=== PATIENT | female | born 1960 | race Caucasian/White ===

== ENCOUNTER 2017-11-08 14:50 | Emergency (ER) | payer OTHER, SELFPAY ==
[2017-11-08 16:08] LABS: Barbiturates NEGATIVE (NEGATIVE); Benzodiazepines NEGATIVE (NEGATIVE); Cocaine NEGATIVE (NEGATIVE); METHAMPHETAM NEGATIVE (NEGATIVE); Methadone NEGATIVE (NEGATIVE); Opiates NEGATIVE (NEGATIVE); Phencyclidine NEGATIVE (NEGATIVE); THC Cannibis NEGATIVE (NEGATIVE)
--- NOTE | 2017-11-08 16:38 | EDPHYS ---
Physician Documentation [facility] Name: Bailee Esparza Age: 56 yrs Sex: Female : 1960 Arrival Date: 11/08/2017 Time: 14:51 Bed 28 Private MD: Out, [facility] ED Physician Albin Corral HPI: 11/08 15:34 This 56 yrs old Female presents to ER via Ambulatory with complaints of Leg cp Numbness. 15:35 The patient presents with pain that is acute, with no known mechanism of injury, and cp tenderness. The symptoms are located in the low back. The pain radiates to the right leg. Onset: The symptoms/episode began/occurred 1 week(s) ago. 15:35 Associated signs and symptoms: Pertinent positives: numbness, tingling, pain radiating cp to right anterior and lateral upper leg, Pertinent negatives: abdominal pain, constipation, dysuria, fever, incontinence, urinary retention, weakness. Historical: - Allergies: 15:09 Sulfa (Sulfonamide Antibiotics); hj 15:09 PENICILLINS; hj - Home Meds: 15:09 citalopram oral [Active]; busphar [Active]; Trazodone Oral [Active]; Geodon oral oral hj [Active]; - PMHx: 15:09 Depression; Anxiety; hj - PSHx: 15:09 ; hj - Immunization history:: Adult Immunizations up to date. - Social history:: Smoking status: Patient uses tobacco products, smokes one pack cigarettes per day. Patient/guardian denies using alcohol. - Ebola Screening: : Patient negative for fever greater than or equal to 101.5 degrees Fahrenheit, and additional compatible Ebola Virus Disease symptoms Patient denies exposure to infectious person Patient denies travel to an Ebola-affected area in the 21 days before illness onset. ROS: 15:40 Constitutional: Negative for body aches, chills, fever, poor PO intake. cp 15:40 Eyes: Negative for injury, pain, redness, and discharge. cp 15:40 ENT: Negative for drainage from ear(s), ear pain, sore throat, difficulty swallowing, difficulty handling secretions. 15:40 Cardiovascular: Negative for chest pain, edema, palpitations. 15:40 Respiratory: Negative for cough, shortness of breath, wheezing. 15:40 Abdomen/GI: Negative for abdominal pain, nausea, vomiting, and diarrhea, constipation, bowel incontinence. 15:40 Back: Positive for pain at rest, pain with movement, of the lumbar area and right low back. 15:40 : Negative for urinary symptoms, difficulty urinating, bladder incontinence. 15:40 MS/extremity: Positive for pain, of the right leg. 15:40 Neuro: Positive for numbness, of the anterior aspect right upper leg, Negative for altered mental status, headache, weakness. 15:40 All other systems are negative. Exam: 15:43 Constitutional: The patient appears in no acute distress, alert, awake, non-toxic, well cp developed, well nourished. 15:43 Head/Face: Normocephalic, atraumatic. cp 15:45 Eyes: Periorbital structures: appear normal, Conjunctiva: normal, Lids and lashes: cp appear normal, bilaterally. 15:45 ENT: External ear(s): are unremarkable, Nose: is normal, Mouth: is normal, Posterior cp pharynx: is normal, airway is patent. 15:45 Neck: ROM/movement: is normal, is supple, without pain, no range of motions limitations, no nuchal rigidity. 15:45 Chest/axilla: Inspection: normal. 15:45 Cardiovascular: Rate: normal, Rhythm: regular. 15:45 Respiratory: the patient does not display signs of respiratory distress, Respirations: normal, no use of accessory muscles, no retractions, no splinting, no tachypnea, Breath sounds: are clear throughout, no decreased breath sounds, no stridor, no wheezing. 15:45 Abdomen/GI: Inspection: abdomen appears normal, Palpation: abdomen is soft and non-tender, in all quadrants, rebound tenderness, is not appreciated, voluntary guarding, is not appreciated, involuntary guarding, is not appreciated. 15:45 Back: pain, that is mild, of the lumbar area and right low back. 15:45 Musculoskeletal/extremity: ROM: full active range of motion, in the right leg and left leg, Perfusion: the extremity is normally perfused throughout, the anterior and lateral aspect right upper leg decreased sensation, Weight bearing: able to fully bear weight, without difficulty. 15:45 Skin: cellulitis, is not appreciated, no rash present. 15:45 Neuro: Gait: is steady, Deep tendon reflexes are 2+ (normal) in the right patellar, right Achilles, left patellar and left Achilles. Vital Signs: 15:10 BP 118 / 67; Pulse 74; Resp 18; Temp 98.4(O); Pulse Ox 97% on R/A; Weight 73.03 kg; hj Height 5 ft. 4 in. (162.56 cm); Pain 0/10; 15:59 BP 114 / 77; Pulse 75; Resp 18; Pulse Ox 100% on R/A; Pain 0/10; mg2 16:52 BP 120 / 70; Pulse 88; Resp 18; Pulse Ox 100% on R/A; Pain 0/10; mg2 15:10 Body Mass Index 27.64 (73.03 kg, 162.56 cm) hj MDM: 15:19 Patient medically screened. cp 16:00 Differential diagnosis: strain, sciatica, Herniated disc UTI, cauda equina, spinal cp stenosis. 16:35 Data reviewed: vital signs, nurses notes, lab test result(s), radiologic studies, plain cp films. 16:35 Test interpretation: by ED physician or midlevel provider: plain radiologic studies. cp Counseling: I had a detailed discussion with the patient and/or guardian regarding: the historical points, exam findings, and any diagnostic results supporting the discharge/admit diagnosis, lab results, radiology results, the need for outpatient follow up, a family practitioner, to return to the emergency department if symptoms worsen or persist or if there are any questions or concerns that arise at home. 11/08 15:41 Order name: Urine Drug Screen; Complete Time: 16:16 ag 11/08 15:41 Order name: Urine Dipstick--Ancillary (enter results) 11/08 15:34 Order name: XRAY Lumbar Spine (3 Views) cp 11/08 15:41 Order name: Urine --Ancillary (enter results) 11/08 15:19 Order name: Urine Dipstick-Ancillary (obtain specimen); Complete Time: 15:31 cp 11/08 15:19 Order name: Urine Test (obtain specimen); Complete Time: 15:31 cp Administered Medications: 16:17 Not Given (Physician Discretion): traMADol 50 mg PO once cp 16:17 Not Given (Physician Discretion): KeFLEX 500 mg PO once cp Disposition: 17:42 Co-signature as Attending Physician, Albin Corral MD Available for consultation at [facility] all times. . Disposition: 11/08/17 16:37 Discharged to Home. Impression: Radiculopathy, lumbar region, Low back pain. - Condition is Stable. - Discharge Instructions: Back Pain, Adult, Lumbosacral Radiculopathy, Back Exercises, [id number]. - Prescriptions for Cyclobenzaprine 10 mg Oral Tablet - take 1 tablet by ORAL route every 8 hours As needed no driving while taking medication; 20 tablet. Medrol (Melvin) 4 mg Oral Tablets, Dose Pack - take 1 tablet by ORAL route as directed - follow package instructions; 1 packet. Ultracet 37.5- 325 mg Oral Tablet - take 1 tablet by ORAL route every 6 hours - for up to 5 days; do not exceed 8 tablets per day.; 15 tablet. - Medication Reconciliation Form, Thank You Letter, Antibiotic Education, Prescription Opioid Use, Work release form form. - Follow up: Private Physician; When: 2 - 3 days; Reason: Recheck today's complaints. - Problem is new. - Symptoms are unchanged. Signatures: Dispatcher [employer] EDMS Bret Rodriguez RN RN hj Hiram Graham PA PA cp Albin Corral MD MD ps1 Martínez Knight RN RN mg2 Corrections: (The following items were deleted from the chart) 16:54 16:37 11/08/2017 16:37 Discharged to Home. Impression: Radiculopathy, lumbar region; mg2 Low back pain. Condition is Stable. Prescriptions for Cyclobenzaprine 10 mg Oral Tablet - take 1 tablet by ORAL route every 8 hours As needed no driving while taking medication; 20 tablet, Medrol (Melvin) 4 mg Oral Tablets, Dose Pack - take 1 tablet by ORAL route as directed - follow package instructions; 1 packet. and Forms are Medication Reconciliation Form, Thank You Letter, Antibiotic Education, Prescription Opioid Use. Follow up: Private Physician; When: 2 - 3 days; Reason: Recheck today's complaints. Problem is new. Symptoms are unchanged. cp
--- NOTE | 2017-11-08 16:38 | ER ---
Nurse's Notes [facility] Name: Bailee Esparza Age: 56 yrs Sex: Female : 1960 Arrival Date: 11/08/2017 Time: 14:51 Bed 28 Private MD: Out, [facility] Diagnosis: Radiculopathy, lumbar region;Low back pain Presentation: 11/08 15:06 Presenting complaint: Patient states: my R leg is going numb and it started yesterday, hj reports hx of lower back pain;. Transition of care: patient was not received from another setting of care. Onset of symptoms was November 08, 2017. Risk Assessment: Do you want to hurt yourself or someone else? Patient reports no desire to harm self or others. Initial Sepsis Screen: Does the patient meet any 2 criteria? No. Patient's initial sepsis screen is negative. Does the patient have a suspected source of infection? No. Patient's initial sepsis screen is negative. Care prior to arrival: None. 15:06 Method Of Arrival: Ambulatory 15:06 Acuity: ARMANDO 4 hj Triage Assessment: 15:08 General: Appears in no apparent distress. uncomfortable, Behavior is calm, cooperative, hj appropriate for age. Pain: Complains of pain in right low back Pain radiates to right leg. Historical: - Allergies: 15:09 Sulfa (Sulfonamide Antibiotics); hj 15:09 PENICILLINS; hj - Home Meds: 15:09 citalopram oral [Active]; busphar [Active]; Trazodone Oral [Active]; Geodon oral oral hj [Active]; - PMHx: 15:09 Depression; Anxiety; hj - PSHx: 15:09 ; hj - Immunization history:: Adult Immunizations up to date. - Social history:: Smoking status: Patient uses tobacco products, smokes one pack cigarettes per day. Patient/guardian denies using alcohol. - Ebola Screening: : Patient negative for fever greater than or equal to 101.5 degrees Fahrenheit, and additional compatible Ebola Virus Disease symptoms Patient denies exposure to infectious person Patient denies travel to an Ebola-affected area in the 21 days before illness onset. Screenin:07 Abuse screen: Denies threats or abuse. Denies injuries from another. Nutritional hj screening: No deficits noted. Tuberculosis screening: No symptoms or risk factors identified. Fall Risk None identified. Assessment: 15:59 General: Appears in no apparent distress. comfortable, Behavior is calm, cooperative. mg2 Pain: Denies pain. Neuro: Level of Consciousness is awake, alert, obeys commands, Oriented to person, place, time, situation. Cardiovascular: Capillary refill < 3 seconds Patient's skin is warm and dry. Respiratory: Airway is patent Respiratory effort is even, unlabored, Respiratory pattern is regular, symmetrical. GI: No signs and/or symptoms were reported involving the gastrointestinal system. : No signs and/or symptoms were reported regarding the genitourinary system. : 16:00 EENT: No signs and/or symptoms were reported regarding the EENT system. Derm: Skin is mg2 intact, Skin is pink, warm \T\ dry. normal. Musculoskeletal: Circulation, motion, and sensation intact. Reports numbness in right leg since yesterday. Vital Signs: 15:10 BP 118 / 67; Pulse 74; Resp 18; Temp 98.4(O); Pulse Ox 97% on R/A; Weight 73.03 kg; hj Height 5 ft. 4 in. (162.56 cm); Pain 0/10; 15:59 BP 114 / 77; Pulse 75; Resp 18; Pulse Ox 100% on R/A; Pain 0/10; mg2 16:52 BP 120 / 70; Pulse 88; Resp 18; Pulse Ox 100% on R/A; Pain 0/10; mg2 15:10 Body Mass Index 27.64 (73.03 kg, 162.56 cm) ED Course: 14:51 Patient arrived in ED. sb2 14:52 Out, [facility] is Private Physician. sb2 15:07 Triage completed. hj 15:08 Arm band placed on left wrist. hj 15:10 Patient has correct armband on for positive identification. Bed in low position. Call light in reach. Side rails up X 1. 15:18 Hiram Graham PA is PHCP. cp 15:18 Albin Corral MD is Attending Physician. cp 15:25 Martínez Knight, JARRETT is Primary Nurse. mg2 16:41 X-ray completed. Patient tolerated procedure well. ml 16:42 XRAY Lumbar Spine (3 Views) In Process Unspecified. EDMS 16:53 No provider procedures requiring assistance completed. Patient did not have IV access mg2 during this emergency room visit. Administered Medications: 16:17 Not Given (Physician Discretion): traMADol 50 mg PO once cp 16:17 Not Given (Physician Discretion): KeFLEX 500 mg PO once cp Outcome: 16:37 Discharge ordered by MD. cp 16:53 Discharged to home ambulatory. mg2 16:53 Condition: stable 16:53 Discharge instructions given to patient, Instructed on discharge instructions, follow up and referral plans. medication usage, Demonstrated understanding of instructions, follow-up care, medications, Prescriptions given X 3. 16:54 Patient left the ED. mg2 Signatures: Dispatcher [employer] EDMS Irene Hernandez Henry, RN RN hj Hiram Graham PA PA cp Billeau, Sheri sb2 Martínez Knight, JARRETT RN mg2
--- NOTE | 2017-11-08 16:54 | RAD REPORT ---
EXAM DESCRIPTION: RAD - Lumbar Spine 3 Views - 11/08/2017 4:42 pm CLINICAL HISTORY: Pain;Numbness/tingling Radiculopathy COMPARISON: No comparisons FINDINGS: Vertebral body heights appear maintained. No compression fracture noted. Disc spaces are m aintained. No spondylolysis or spondylolisthesis. Aortic atherosclerosis. IMPRESSION: Negative study.
[2017-11-08 17:21] LABS: Urine Blood 1+ (NEG); Urine Glucose NEGATIVE (NEG); Urine Protein 1+ (NEG); Urine Specific Gravity 1.025 (1.005-1.030)
== END 2017-11-08 16:54 | disposition home or self-care (01) ==
LOC: ER 14:50
DX: M54.16 Radiculopathy, lumbar region (principal); F17.210 Nicotine dependence, cigarettes, uncomplicated; F32.9 Major depressive disorder, single episode, unspecified; F41.9 Anxiety disorder, unspecified; Z88.0 Allergy status to penicillin; Z88.2 Allergy status to sulfonamides
CPT/HCPCS: 72100; 80307; 81003; 81025; 99283

== ENCOUNTER 2018-04-07 08:23 | Emergency (ER) | payer SELFPAY ==
--- NOTE | 2018-04-07 11:06 | RAD REPORT ---
EXAM DESCRIPTION: RAD - Chest Pa And Lat (2 Views) - 04/07/2018 10:59 am CLINICAL HISTORY: COUGH Chest pain. COMPARISON: CHEST SINGLE VIEW dated 03/02/2015 FINDINGS: Prominent emphysematous changes are present throughout the lungs. A focal infiltrate is no t seen. The heart is upper limit normal size. No displaced fractures. IMPRESSION: Advanced COPD.
--- NOTE | 2018-04-07 11:13 | EDPHYS ---
Physician Documentation [facility] Name: Bailee Esparza Age: 57 yrs Sex: Female : 1960 Arrival Date: 04/07/2018 Time: 08:28 Bed 30 Private MD: Out, [facility] ED Physician Ar Sterling HPI: 04/07 10:47 This 57 yrs old Female presents to ER via Ambulatory with complaints of Cough.rn 10:47 The patient or guardian reports cough. Onset: The symptoms/episode began/occurred 2 rn day(s) ago. Severity of symptoms: At their worst the symptoms were mild, in the emergency department the symptoms are unchanged. Modifying factors: The symptoms are alleviated by nothing, the symptoms are aggravated by nothing. The patient has experienced a previous episode. The patient has not recently seen a physician. REports cough, began 2 days ago, no fever, + sick contacts, reports feels like has bronchitis. . Historical: - Allergies: 08:58 Sulfa (Sulfonamide Antibiotics); aa5 08:58 PENICILLINS; aa5 - PMHx: 08:58 Depression; Anxiety; aa5 - PSHx: 08:58 ; aa5 - Immunization history:: Pneumococcal vaccine is not up to date, Flu vaccine is not up to date. - Social history:: Smoking status: Patient uses tobacco products, smokes one pack cigarettes per day. - Ebola Screening: : No symptoms or risks identified at this time. - Family history:: not pertinent. - Hospitalizations: : No recent hospitalization is reported. ROS: 10:47 Constitutional: Negative for fever, chills, and weight loss, Eyes: Negative for injury, rn pain, redness, and discharge, ENT: Negative for injury, pain, and discharge, Neck: Negative for injury, pain, and swelling, Cardiovascular: Negative for chest pain, palpitations, and edema, Respiratory: + cough Abdomen/GI: Negative for abdominal pain, nausea, vomiting, diarrhea, and constipation, Back: Negative for injury and pain, MS/Extremity: Negative for injury and deformity, Skin: Negative for injury, rash, and discoloration, Neuro: Negative for headache, weakness, numbness, tingling, and seizure. Exam: 10:47 Constitutional: This is a well developed, well nourished patient who is awake, alert, rn and in no acute distress. Head/Face: Normocephalic, atraumatic. ENT: No stridor Cardiovascular: Regular rate and rhythm with a normal S1 and S2. No gallops, murmurs, or rubs.No JVD. No pulse deficits. Respiratory: clear bilaterally, no wheezing, no retractions or tachypnea, speaking full sentences Skin: Warm, dry with normal turgor. Normal color with no rashes, no lesions, and no evidence of cellulitis. MS/ Extremity: Pulses equal, no cyanosis. Neurovascular intact. Full, normal range of motion. Equal circumference. Neuro: Awake and alert, GCS 15, oriented to person, place, time, and situation. Cranial nerves II-XII grossly intact. Motor strength 5/5 in all extremities. Sensory grossly intact. Cerebellar exam normal. Normal gait. Vital Signs: 08:58 BP 123 / 84; Pulse 60; Resp 16 S; Temp 98.5(TE); Pulse Ox 96% on R/A; Weight 71.67 kg aa5 (R); Height 5 ft. 4 in. (162.56 cm) (R); Pain 0/10; 11:32 BP 139 / 78; Pulse 62; Resp 16; Temp 98.2; Pulse Ox 98% on R/A; Pain 0/10; ls4 08:58 Body Mass Index 27.12 (71.67 kg, 162.56 cm) aa5 MDM: 10:10 Patient medically screened. rn 11:10 Differential Diagnosis: Bronchitis Upper Respiratory Infection Viral Syndrome rn Pneumonia. Data reviewed: vital signs, nurses notes, radiologic studies, plain films, and as a result, I will discharge patient. Counseling: I had a detailed discussion with the patient and/or guardian regarding: the historical points, exam findings, and any diagnostic results supporting the discharge/admit diagnosis, radiology results, the need for outpatient follow up, to return to the emergency department if symptoms worsen or persist or if there are any questions or concerns that arise at home. Special discussion: I discussed with the patient/guardian in detail that at this point there is no indication for admission to the hospital. It is understood, however, that if the symptoms persist or worsen the patient needs to return immediately for re-evaluation. Based on the history and exam findings, there is no indication for further emergent testing or inpatient evaluation. I discussed with the patient/guardian the need to see the primary care provider for further evaluation of the symptoms. I discussed with the patient/guardian the need to see the manager ccu for further evaluation of the symptoms. ED course: Pt with signs of COPD, reports long time smoker, no infiltrate, will dc home with steroids and inhaler, recommend pcp/pulmonology f/u for daily therapy. . 04/07 10:15 Order name: XRAY Chest Pa And Lat (2 Views); Complete Time: 11:07 rn Administered Medications: 11:31 Drug: predniSONE 60 mg Route: PO; ls4 11:35 Follow up: Response: No adverse reaction ls4 Disposition: 04/07/18 11:12 Discharged to Home. Impression: Cough, Unspecified chronic bronchitis. - Condition is Stable. - Discharge Instructions: Chronic Bronchitis, Chronic Obstructive Pulmonary Disease, How to Use an Inhaler, Cough, Adult. - Prescriptions for Prednisone 20 mg Oral Tablet - take 3 tablet by ORAL route once daily for 5 days; 15 tablet. Albuterol Sulfate 90 mcg/actuation - inhale 1-2 puff by INHALATION route every 4-6 hours; 1 Inhaler. - Work release form, Medication Reconciliation Form, Thank You Letter, Antibiotic Education, Prescription Opioid Use form. - Follow up: Private Physician; When: As needed; Reason: Recheck today's complaints, Re-evaluation by your physician. - Problem is chronic. - Symptoms have improved. Signatures: Dispatcher [employer] EDMS Ar Sterling MD MD rn Calderon, Audri, RN RN aa5 Ileana Denton RN RN ls4 Corrections: (The following items were deleted from the chart) 11:35 11:12 04/07/2018 11:12 Discharged to Home. Impression: Cough; Unspecified chronic ls4 bronchitis. Condition is Stable. Forms are Medication Reconciliation Form, Thank You Letter, Antibiotic Education, Prescription Opioid Use. Follow up: Private Physician; When: As needed; Reason: Recheck today's complaints, Re-evaluation by your physician. Problem is chronic. Symptoms have improved. rn
--- NOTE | 2018-04-07 11:13 | ER ---
Nurse's Notes [facility] Name: Bailee Esparza Age: 57 yrs Sex: Female : 1960 Arrival Date: 04/07/2018 Time: 08:28 Bed 30 Private MD: Out, [facility] Diagnosis: Cough;Unspecified chronic bronchitis Presentation: 04/07 08:57 Presenting complaint: Patient states: cough that began 2 days ago. Pt states "I know I aa5 have bronchitis". Transition of care: patient was not received from another setting of care. Onset of symptoms was April 2018. Risk Assessment: Do you want to hurt yourself or someone else? Patient reports no desire to harm self or others. Initial Sepsis Screen: Does the patient meet any 2 criteria? No. Patient's initial sepsis screen is negative. Does the patient have a suspected source of infection? No. Patient's initial sepsis screen is negative. Care prior to arrival: None. 08:57 Method Of Arrival: Ambulatory aa5 08:57 Acuity: ARMANDO 4 aa5 Historical: - Allergies: 08:58 Sulfa (Sulfonamide Antibiotics); aa5 08:58 PENICILLINS; aa5 - PMHx: 08:58 Depression; Anxiety; aa5 - PSHx: 08:58 ; aa5 - Immunization history:: Pneumococcal vaccine is not up to date, Flu vaccine is not up to date. - Social history:: Smoking status: Patient uses tobacco products, smokes one pack cigarettes per day. - Ebola Screening: : No symptoms or risks identified at this time. - Family history:: not pertinent. - Hospitalizations: : No recent hospitalization is reported. Screenin:44 Abuse screen: Denies threats or abuse. Denies injuries from another. Nutritional ch screening: No deficits noted. Tuberculosis screening: No symptoms or risk factors identified. Fall Risk None identified. Assessment: 10:44 General: Appears in no apparent distress. comfortable, Behavior is calm, cooperative, ch appropriate for age. Pain: Complains of pain in chest and throat Pain currently is 6 out of 10 on a pain scale. Pain began gradually, pt states it feels like her normal bronchitis, it hurts when she breath. feels muscular, is not a deep pain. Neuro: No deficits noted. Cardiovascular: Heart tones S1 S2 present Capillary refill < 3 seconds in bilateral fingers toes Clubbing of nail beds is absent. Respiratory: Reports shortness of breath cough that is Airway is patent Trachea midline Respiratory effort is even, unlabored, Respiratory pattern is regular. GI: No signs and/or symptoms were reported involving the gastrointestinal system. : No signs and/or symptoms were reported regarding the genitourinary system. EENT: Reports nasal congestion sore throat, pain with swallowing. Derm: Skin is pink, warm \\T\\ dry. 11:33 Reassessment: No changes from previously documented assessment. Patient and/or family ls4 updated on plan of care and expected duration. Pain level reassessed. Patient states feeling better. Respiratory: Breath sounds are clear bilaterally. 11:34 EENT: Throat is clear. ls4 Vital Signs: 08:58 BP 123 / 84; Pulse 60; Resp 16 S; Temp 98.5(TE); Pulse Ox 96% on R/A; Weight 71.67 kg aa5 (R); Height 5 ft. 4 in. (162.56 cm) (R); Pain 0/10; 11:32 BP 139 / 78; Pulse 62; Resp 16; Temp 98.2; Pulse Ox 98% on R/A; Pain 0/10; ls4 08:58 Body Mass Index 27.12 (71.67 kg, 162.56 cm) aa5 ED Course: 08:28 Patient arrived in ED. sb2 08:29 Out, [facility] is Private Physician. sb2 08:56 Arm band placed on. aa5 08:57 Triage completed. aa5 10:10 rA Sterling MD is Attending Physician. rn 10:44 Carmela Graham RN is Primary Nurse. ch 10:44 No apparent distress. Resting quietly. ch 10:44 Patient has correct armband on for positive identification. Placed in gown. Bed in low ch position. Call light in reach. Side rails up X 1. Pulse ox on. 10:44 No provider procedures requiring assistance completed. Patient did not have IV access ch during this emergency room visit. 10:57 XRAY Chest Pa And Lat (2 Views) In Process Unspecified. EDMS 10:57 X-ray completed. Patient tolerated procedure well. Patient moved to radiology via jb2 wheelchair. Patient moved back from radiology. Administered Medications: 11:31 Drug: predniSONE 60 mg Route: PO; ls4 11:35 Follow up: Response: No adverse reaction ls4 Outcome: 11:12 Discharge ordered by . rn 11:33 Discharged to home ambulatory. ls4 11:33 Condition: stable 11:33 Discharge instructions given to patient, Instructed on discharge instructions, follow up and referral plans. the need for admit, safety practices, Demonstrated understanding of instructions, follow-up care, medications. 11:35 Patient left the ED. ls4 Signatures: Dispatcher [employer] EDMS Carmela Graham, RN RN Claudy Nielson Roman, MD MD rn Calderon, Audri, RN RN aa5 Davina Larsen 2 Ileana Denton RN RN ls4 Corrections: (The following items were deleted from the chart) 14:40 09:40 Marilyn Black RN is Primary Nurse. [place] [id number] 14:40 10:44 Primary Nurse role handed off by Marilyn Black RN [facility]
[2018-04-07] MEDS ORDERED: predniSONE 20 MG TAB ONE (11:37)
== END 2018-04-07 11:35 | disposition home or self-care (01) ==
LOC: ER 08:23
DX: J42 Unspecified chronic bronchitis (principal); F17.210 Nicotine dependence, cigarettes, uncomplicated
CPT/HCPCS: 71046; 99283; J7512

== ENCOUNTER 2019-05-16 08:54 | Emergency (ER) | payer SELFPAY ==
--- NOTE | 2019-05-16 10:15 | RAD REPORT ---
EXAM DESCRIPTION: [place] [facility] [place] (2 Views)05/16/2019 9:37 am CLINICAL HISTORY: Cough COMPARISON: April 2017 FINDINGS: Lungs are hyperaerated. The lungs appear clear of acute infiltrate. The heart is normal s ize IMPRESSION: No acute abnormalities displayed
--- NOTE | 2019-05-16 10:25 | ER ---
Nurse's Notes [facility] Name: Bailee Esparza Age: 58 yrs Sex: Female : 1960 Arrival Date: 05/16/2019 Time: 08:56 Bed 16 Private MD: Diagnosis: Acute bronchitis Presentation: 05/16 09:11 Presenting complaint: Patient states: dry, hacking cough that began 1 week ago. Pt ss states, "I think I have bronchitis.". Transition of care: patient was not received from another setting of care. Onset of symptoms was May 08, 2019. Risk Assessment: Do you want to hurt yourself or someone else? Patient reports no desire to harm self or others. Initial Sepsis Screen: Does the patient meet any 2 criteria? No. Patient's initial sepsis screen is negative. Does the patient have a suspected source of infection? No. Patient's initial sepsis screen is negative. Care prior to arrival: None. 09:11 Method Of Arrival: Ambulatory ss 09:11 Acuity: ARMANDO 4 ss Historical: - Allergies: 09:13 PENICILLINS; ss 09:13 Sulfa (Sulfonamide Antibiotics); ss - Home Meds: 09:53 busphar [Active]; citalopram oral [Active]; Geodon Oral [Active]; Trazodone Oral tw2 [Active]; - PMHx: 09:13 Anxiety; Depression; ss - PSHx: 09:13 ; ss - Immunization history:: Adult Immunizations up to date. - Coronavirus screen:: The patient has NOT traveled to [place] in the past 14 days. Proceed with normal triage process as indicated. - Social history:: Smoking status: Patient denies any tobacco usage or history of. - Ebola Screening: : Patient denies exposure to infectious person Patient denies travel to an Ebola-affected area in the 21 days before illness onset. Screenin:51 Abuse screen: Denies threats or abuse. Nutritional screening: No deficits noted. tw2 Tuberculosis screening: No symptoms or risk factors identified. Fall Risk None identified. Assessment: 09:05 General: Appears in no apparent distress. Behavior is calm, cooperative, appropriate tw2 for age. Neuro: Level of Consciousness is awake, alert, obeys commands, Oriented to person, place, time, situation. Cardiovascular: Heart tones S1 S2 Patient's skin is warm and dry. Respiratory: Reports cough that is non-productive, dry, hacking, persistent since 1 week ago Airway is patent Respiratory effort is even, unlabored, Respiratory pattern is regular, symmetrical, Breath sounds are clear bilaterally. GI: No signs and/or symptoms were reported involving the gastrointestinal system. : No signs and/or symptoms were reported regarding the genitourinary system. EENT: No signs and/or symptoms were reported regarding the EENT system. EENT: Reports nasal congestion nasal discharge. Derm: No signs and/or symptoms reported regarding the dermatologic system. Musculoskeletal: Range of motion: intact in all extremities. 09:05 Pain: Denies pain. tw2 10:19 Reassessment: Patient appears in no apparent distress at this time. No changes from aj1 previously documented assessment. Patient and/or family updated on plan of care and expected duration. Pain level reassessed. Patient is alert, oriented x 3, equal unlabored respirations, skin warm/dry/pink. Vital Signs: 09:13 BP 138 / 77; Pulse 73; Resp 18; Temp 97.6; Pulse Ox 98% on R/A; Weight 68.04 kg; Height ss 5 ft. 4 in. (162.56 cm); Pain 0/10; 09:13 Body Mass Index 25.75 (68.04 kg, 162.56 cm) ED Course: 08:56 Patient arrived in ED. mr 09:05 Bed in low position. Call light in reach. tw2 09:06 [facility] jr8 09:06 Hiram Lindsey MD is Attending Physician. jr8 09:12 Triage completed. ss 09:13 Arm band placed on right wrist. ss 09:19 Jenelle Alonzo, JARRETT is Primary Nurse. tw2 10:37 No provider procedures requiring assistance completed. Patient did not have IV access aj1 during this emergency room visit. Administered Medications: No medications were administered Outcome: 10:24 Discharge ordered by . jr8 10:37 Discharged to home ambulatory. aj1 10:37 Condition: good 10:37 Discharge instructions given to patient, Instructed on discharge instructions, follow up and referral plans. medication usage, Demonstrated understanding of instructions, follow-up care, medications, Prescriptions given X 3. 10:37 Patient left the ED. aj1 Signatures: Hamida Devries RN RN aj1 Mccormick, Evette mr Holley Spann, RN RN ss Prosper Whatley PA PA jr8 Jenelle Alonzo RN RN tw2
--- NOTE | 2019-05-16 10:25 | EDPHYS ---
Physician Documentation [facility] Name: Bailee Esparza Age: 58 yrs Sex: Female : 1960 Arrival Date: 05/16/2019 Time: 08:56 Bed 16 Private MD: ED Physician Hiram Lindsey HPI: 05/16 10:25 This 58 yrs old Female presents to ER via Ambulatory with complaints of jr8 Non-Productive Cough. 10:25 The patient or guardian reports cough, that is intermittent, described as mild, with no jr8 sputum. Onset: The symptoms/episode began/occurred gradually, 1 week(s) ago. Severity of symptoms: At their worst the symptoms were mild, in the emergency department the symptoms are unchanged. Modifying factors: The symptoms are alleviated by nothing, the symptoms are aggravated by nothing. Associated signs and symptoms: The patient has no apparent associated signs or symptoms. It is unknown whether or not the patient has had similar symptoms in the past. The patient has not recently seen a physician. stated that the cough is not going away. Denies other symptoms . Historical: - Allergies: 09:13 PENICILLINS; ss 09:13 Sulfa (Sulfonamide Antibiotics); ss - Home Meds: 09:53 busphar [Active]; citalopram oral [Active]; Geodon Oral [Active]; Trazodone Oral tw2 [Active]; - PMHx: 09:13 Anxiety; Depression; ss - PSHx: 09:13 ; ss - Immunization history:: Adult Immunizations up to date. - Coronavirus screen:: The patient has NOT traveled to [place] in the past 14 days. Proceed with normal triage process as indicated. - Social history:: Smoking status: Patient denies any tobacco usage or history of. - Ebola Screening: : Patient denies exposure to infectious person Patient denies travel to an Ebola-affected area in the 21 days before illness onset. ROS: 10:25 Eyes: Negative for injury, pain, redness, and discharge, ENT: Negative for injury, jr8 pain, and discharge, Neck: Negative for injury, pain, and swelling, Cardiovascular: Negative for chest pain, palpitations, and edema, Abdomen/GI: Negative for abdominal pain, nausea, vomiting, diarrhea, and constipation, Back: Negative for injury and pain, MS/Extremity: Negative for injury and deformity, Skin: Negative for injury, rash, and discoloration, Neuro: Negative for headache, weakness, numbness, tingling, and seizure. 10:25 Respiratory: Positive for cough, Negative for dyspnea on exertion, shortness of breath, sputum production, wheezing. Exam: 10:25 Eyes: Pupils equal round and reactive to light, extra-ocular motions intact. Lids and jr8 lashes normal. Conjunctiva and sclera are non-icteric and not injected. Cornea within normal limits. Periorbital areas with no swelling, redness, or edema. ENT: Nares patent. No nasal discharge, no septal abnormalities noted. Tympanic membranes are normal and external auditory canals are clear. Oropharynx with no redness, swelling, or masses, exudates, or evidence of obstruction, uvula midline. Mucous membranes moist. Neck: Trachea midline, no thyromegaly or masses palpated, and no cervical lymphadenopathy. Supple, full range of motion without nuchal rigidity, or vertebral point tenderness. No Meningismus. Cardiovascular: Regular rate and rhythm with a normal S1 and S2. No gallops, murmurs, or rubs. Normal PMI, no JVD. No pulse deficits. Respiratory: Lungs have equal breath sounds bilaterally, clear to auscultation and percussion. No rales, rhonchi or wheezes noted. No increased work of breathing, no retractions or nasal flaring. Abdomen/GI: Soft, non-tender, with normal bowel sounds. No distension or tympany. No guarding or rebound. No evidence of tenderness throughout. Back: No spinal tenderness. No costovertebral tenderness. Full range of motion. Skin: Warm, dry with normal turgor. Normal color with no rashes, no lesions, and no evidence of cellulitis. MS/ Extremity: Pulses equal, no cyanosis. Neurovascular intact. Full, normal range of motion. Neuro: Awake and alert, GCS 15, oriented to person, place, time, and situation. Cranial nerves II-XII grossly intact. Motor strength 5/5 in all extremities. Sensory grossly intact. Cerebellar exam normal. Normal gait. Vital Signs: 09:13 BP 138 / 77; Pulse 73; Resp 18; Temp 97.6; Pulse Ox 98% on R/A; Weight 68.04 kg; Height ss 5 ft. 4 in. (162.56 cm); Pain 0/10; 09:13 Body Mass Index 25.75 (68.04 kg, 162.56 cm) MDM: 09:06 Patient medically screened. jr8 10:25 Data reviewed: vital signs, nurses notes, radiologic studies, plain films. Data jr8 interpreted: Pulse oximetry: on room air is 98 %. Interpretation: normal. Counseling: I had a detailed discussion with the patient and/or guardian regarding: the historical points, exam findings, and any diagnostic results supporting the discharge/admit diagnosis, radiology results, the need for outpatient follow up, a family practitioner, to return to the emergency department if symptoms worsen or persist or if there are any questions or concerns that arise at home. 05/16 09:24 Order name: XRAY Chest Pa And Lat (2 Views) jr8 05/16 10:28 Order name: RAD; Complete Time: 10:30 EDMS Administered Medications: No medications were administered Disposition: 05/16/19 10:24 Discharged to Home. Impression: Acute bronchitis. - Condition is Stable. - Discharge Instructions: Acute Bronchitis, Adult. - Prescriptions for Prednisone 20 mg Oral Tablet - take 2 tablet by ORAL route once daily for 5 days; 10 tablet. Albuterol Sulfate 90 mcg/actuation - inhale 1-2 puff by INHALATION route every 4-6 hours; 1 Inhaler. Guaifenesin AC 10- 100 mg/5 mL Oral Liquid - take 10 milliliter by ORAL route every 4 hours As needed; 240 milliliter. - Medication Reconciliation Form, Thank You Letter, Antibiotic Education, Prescription Opioid Use, Work release form form. - Follow up: Private Physician; When: 5 - 6 days; Reason: Recheck today's complaints, Continuance of care, Re-evaluation by your physician. - Problem is new. - Symptoms have improved. Addendum: 05/18/2019 07:53 Co-signature as Attending Physician, Hiram Lindsey MD I agree with the assessment and c julio plan of care. Signatures: Dispatcher [employer] EDMS Hamida Devries, RN RN aj1 Hiram Lindsey MD MD cha Smirch, Shelby, RN RN ss Prosper Whatley, PA PA jr8 Jenelle Alonzo RN RN tw2 Corrections: (The following items were deleted from the chart) 05/16 10:37 10:24 05/16/2019 10:24 Discharged to Home. Impression: Acute bronchitis. Condition is aj1 Stable. Forms are Work release form, Medication Reconciliation Form, Thank You Letter, Antibiotic Education, Prescription Opioid Use. Follow up: Private Physician; When: 5 - 6 days; Reason: Recheck today's complaints, Continuance of care, Re-evaluation by your physician. Problem is new. Symptoms have improved. jr8
[2019-05-16 10:53] VITALS: BP 138/77; TEMP 97.6; O2SAT 98
== END 2019-05-16 10:37 | disposition home or self-care (01) ==
LOC: ER 08:54
DX: J20.9 Acute bronchitis, unspecified (principal); Z88.0 Allergy status to penicillin; Z88.2 Allergy status to sulfonamides; F41.8 Other specified anxiety disorders
CPT/HCPCS: 71046; 99282

== ENCOUNTER 2019-08-02 11:38 | Emergency (ER) | payer SELFPAY ==
[2019-08-02] MEDS ORDERED: NA CHLORIDE 0.9% 500 ML ONE (12:35)
[2019-08-02 12:36] LABS: Absolute Lymphocytes (CBC) 1.6 K/uL (0.7-4.9); Basophils % 0.5 % (0-1.3); Hematocrit 45.5 % (36.0-45.0); Lymphocytes % 27.2 % (15.3-44.8); MPV 9.2 fL (7.6-11.3); RBC Red Blood Cell Count 5.49 M/uL (3.86-4.86)
[2019-08-02 12:39] LABS: Protime INR 1.01
[2019-08-02 12:48] LABS: BUN Blood Urea Nitrogen 12 mg/dL (7-18); Bicarbonate 25 mmol/L (21-32); Glucose Level 101 mg/dL (74-106); Potassium 3.9 mmol/L (3.5-5.1); Sodium Level 139 mmol/L (136-145)
--- NOTE | 2019-08-02 13:41 | RAD REPORT ---
EXAM DESCRIPTION: CT - Ct Stroke Brain Wo Cont - 08/02/2019 1:31 pm CLINICAL HISTORY: transient right monocular vision changes Headache, drowsiness. COMPARISON: No comparisons TECHNIQUE: All CT scans are performed using dose optimization technique as appropriate and may inclu de automated exposure control or mA/KV adjustment according to patient size. FINDINGS: No intracranial hemorrhage, hydrocephalus or extra-axial fluid collection.5 mm colloid cys t is suspected.No areas of brain edema or evidence of midline shift. The paranasal sinuses and mastoids are clear. The calvarium is intact. IMPRESSION: No acute intracranial abnormality. 5 mm colloid cyst is suspected. The findings were discussed with Dr. Sterling in the ER On 08/02/2019 at 12:15 p.m. by telephone.
--- NOTE | 2019-08-02 13:45 | RAD REPORT ---
EXAM DESCRIPTION: CT - Head angio - 08/02/2019 1:24 pm CLINICAL HISTORY: vision problem Headache, drowsiness, TIA symptomology COMPARISON: Ct Stroke Brain Wo Cont dated 08/02/2019 TECHNIQUE: CT angiography of the head was performed with MIPs. All CT scans are performed using dose optimization technique as appropriate and may include automated exposure control or mA/KV adjustment according to patient size. FINDINGS: No evidence of aneurysm is detected. No flow-limiting stenosis or vascular malformation id entified. Antegrade flow is seen in the vertebral arteries. The vertebral arteries are codominant. The visualized dural venous sinuses are patent. IMPRESSION: No significant flow abnormality is detected.
--- NOTE | 2019-08-02 13:47 | RAD REPORT ---
EXAM DESCRIPTION: CT - Neck Angio - 08/02/2019 1:24 pm CLINICAL HISTORY: vision problem Headache, drowsiness, TIA symptomology COMPARISON: No comparisons TECHNIQUE: CT angiography of the neck vessels was performed with MIPs. All CT scans are performed using dose optimization technique as appropriate and may include automated exposure control or mA/KV adjustment according to patient size. FINDINGS: A left aortic arch is identified with normal three vessel configuration of the great vesse ls. No significant flow abnormality is seen of the common carotid bilaterally. No significant stenosis is identified involving the cervical segments of both internal carotid arteri es. Mild hard plaquing is seen in the region of both carotid bulbs. Normal flow is seen within both vertebral arteries. IMPRESSION: Mild hard plaquing is seen in both carotid bulbs without evidence of significant carotid stenosis.
--- NOTE | 2019-08-02 14:05 | ER ---
Nurse's Notes [facility] Name: Bailee Esparza Age: 58 yrs Sex: Female : 1960 Arrival Date: 08/02/2019 Time: 11:38 Bed 17 Private MD: Diagnosis: Visual disturbances;Amaurosis fugax Presentation: 08/01 11:50 Chief complaint: Patient states: "I was at work and my right eye went black for like 30 aa5 minutes and right now I am just seeing clear spots, like a fog over my right eye". Pt denies numbness/denies tingling/denies weakness. Last known normal was 1120. No arm drift noted, no leg drift noted, steady gait noted. 11:50 Coronavirus screen: Proceed with normal triage. Patient denies a cough. Patient denies aa5 shortness of breath or difficulty breathing. Patient denies measured and/or subjective temperature greater than 100.4F prior to today's visit. Patient denies travel on a cruise ship or to a country the [facility] currently lists as an affected area. Patient denies contact with known and/or suspected case of COVID-19. Ebola Screen: Patient negative for fever greater than or equal to 101.5 degrees Fahrenheit, and additional compatible Ebola Virus Disease symptoms. Initial Sepsis Screen: Does the patient meet any 2 criteria? No. Patient's initial sepsis screen is negative. Does the patient have a suspected source of infection? No. Patient's initial sepsis screen is negative. Risk Assessment: Do you want to hurt yourself or someone else? Patient reports no desire to harm self or others. Onset of symptoms was August 02, 2019. 11:50 Acuity: ARMANDO 2 aa5 11:50 Method Of Arrival: Ambulatory aa5 11:50 Pre-hospital glucose is not applicable to this patient. aa5 11:50 An acute neurological deficit is present. The patient has been moved to a treatment aa5 area. Triage Assessment: 12:39 The onset of the patients symptoms was August 02, 2019 at 11:00. General: Appears in no ca1 apparent distress. comfortable. Stroke Activation: Symptom onset < 3 hours Physician: Stroke Attending; Name: ; Notified At: ; Arrived At: Physician: Chief Stroke Resident; Name: ; Notified At: ; Arrived At: Physician: Stroke Resident; Name: ; Notified At: ; Arrived At: Physician: ED Attending; Name: ; Notified At: ; Arrived At: Physician: ED Resident; Name: ; Notified At: ; Arrived At: Historical: - Allergies: 12:00 PENICILLINS; aa5 12:00 Sulfa (Sulfonamide Antibiotics); aa5 - PMHx: 12:00 Anxiety; Depression; aa5 - PSHx: 12:00 ; aa5 - Immunization history:: Adult Immunizations unknown. - Social history:: Smoking status: Patient reports the use of cigarette tobacco products, smokes one pack cigarettes per day. - Family history:: not pertinent. - Hospitalizations: : No recent hospitalization is reported. Screenin:33 Abuse screen: Denies threats or abuse. Denies injuries from another. Nutritional ca1 screening: No deficits noted. Tuberculosis screening: No symptoms or risk factors identified. Fall Risk IV access (20 points). Assessment: 11:53 Reassessment: Dr. Sterling at bedside. . aa5 12:33 VAN Scoring: Arm Drift: Patients demonstrates NO arm weakness. Patient is VAN Negative. ca1 Patient has been NPO before screening. The patient is alert, and able to follow commands. The patient does not exhibit slurred or garbled speech. The patient is not exhibiting difficulty speaking. The patient does not exhibit difficulty understanding words. The patient is able to swallow own secretions with no drooling or need for suction. Patient tolerated one teaspoon of water. No drooling, immediate coughing, gurgling, or clearing of the throat was noted. The patient tolerated 90mL of water. No drooling, immediate coughing, gurgling, or clearing of the throat was noted. The patient passed the bedside swallow screening. Oral medications may be given as ordered. Contact Physician for further diet orders. Provider notified of bedside swallow screening results: Ar Sterling MD. General: Appears in no apparent distress. comfortable, Behavior is calm, cooperative, appropriate for age. Pain: Denies pain. Neuro: Level of Consciousness is awake, alert, obeys commands, Oriented to person, place, time, situation, Appropriate for age Ems Director are equal bilaterally Moves all extremities. Gait is steady, Speech is normal, Facial symmetry appears normal, Pupils are PERRLA, Intact. Neuro: Reports blurred vision in R eye since an hour ago but has resolved states, "it's like being under water but it is only the R eye". Cardiovascular: Heart tones S1 S2 present Capillary refill < 3 seconds Patient's skin is warm and dry. Rhythm is sinus rhythm. Respiratory: Airway is patent Respiratory effort is even, unlabored, Respiratory pattern is regular, symmetrical. GI: Abdomen is flat, non-distended, Bowel sounds present X 4 quads. Abd is soft and non tender X 4 quads. : No signs and/or symptoms were reported regarding the genitourinary system. EENT: Reports blurred vision in R eye since an hour ago but has resolved. Derm: Skin is intact, is healthy with good turgor, Skin is pink, warm \\T\\ dry. Musculoskeletal: Circulation, motion, and sensation intact. Capillary refill < 3 seconds. 13:05 Reassessment: Patient appears in no apparent distress at this time. No changes from ca1 previously documented assessment. Patient and/or family updated on plan of care and expected duration. Pain level reassessed. Patient is alert, oriented x 3, equal unlabored respirations, skin warm/dry/pink. 13:10 Reassessment: PT to CT. ca1 13:39 Reassessment: PT ambulated to restroom. ca1 14:48 Reassessment: Patient appears in no apparent distress at this time. No changes from ls4 previously documented assessment. Patient and/or family updated on plan of care and expected duration. Pain level reassessed. Patient is alert, oriented x 3, equal unlabored respirations, skin warm/dry/pink. Vital Signs: 11:50 BP 152 / 77; Pulse 66; Resp 18 S; Temp 98.4(O); Pulse Ox 95% on R/A; Weight 65.77 kg aa5 (R); Height 5 ft. 5 in. (165.10 cm) (R); Pain 0/10; 12:49 BP 124 / 64; Pulse 60; Resp 18 S; Pulse Ox 94% on R/A; ca1 13:46 BP 109 / 82; Pulse 57; Resp 15 S; Pulse Ox 98% on R/A; ca1 11:50 Body Mass Index 24.13 (65.77 kg, 165.10 cm) aa5 NIH Stroke Scale Scores: 12:10 NIHSS Score: 0 ca1 ED Course: 11:38 Patient arrived in ED. as 11:50 Acob, Devorah, RN is Primary Nurse. ca1 11:50 Arm band placed on Patient placed in an exam room, on a stretcher. aa5 11:54 Ar Sterling MD is Attending Physician. rn 12:00 Triage completed. aa5 12:17 CT Stroke Brain w/o Contrast In Process Unspecified. EDMS 12:28 No provider procedures requiring assistance completed. Initial lab(s) drawn, by me, ca1 sent to lab. Inserted saline lock: 20 gauge in right antecubital area, using aseptic technique. Blood collected. 12:33 Patient has correct armband on for positive identification. Placed in gown. Bed in low ca1 position. Call light in reach. Side rails up X2. secured entrance monitor on. Pulse ox on. NIBP on. Warm blanket given. 13:25 CT Head Angio In Process Unspecified. EDMS 13:25 CT Neck Angio In Process Unspecified. EDMS 13:53 Report given to JARRETT Tejeda. ca1 14:04 Haroon Stephens MD is Hospitalizing Provider. rn 14:30 Fawad Barr MD is Referral Physician. rn 14:30 Ramy Monzon MD is Referral Physician. rn 14:47 IV discontinued, intact, bleeding controlled, No redness/swelling at site. Pressure ls4 dressing applied. Administered Medications: 12:33 Drug: NS 0.9% 500 ml Route: IV; Rate: bolus; Site: right antecubital; ca1 13:05 Follow up: IV Status: Completed infusion ca1 Point of Care Testing: Blood Glucose: 12:39 Blood Glucose: 99 mg/dL; ca1 Ranges: Outcome: 14:04 Decision to Hospitalize by Provider. rn 14:31 Discharge ordered by . rn 14:47 Discharged to home ambulatory. ls4 14:47 Condition: stable 14:47 Discharge instructions given to patient, Instructed on discharge instructions, follow up and referral plans. Demonstrated understanding of instructions, follow-up care. 14:48 Patient left the ED. ls4 NIH Stroke Scale - NIH Stroke Score Date: 08/02/2019 Time: 12:10 Total Score = 0 1a. Level of Consciousness (LOC) - 0(Alert) 1b. Level of Consciousness (LOC) (Year \\T\\ Age) - 0(Both) 1c. LOC Commands (Open \\T\\ Closes Eyes/Clinical Athletic Instructor) - 0(Both) 2. Best Gaze (Lateral Gaze Paresis) - 0(Normal) 3. Visual Field Loss - 0(No visual loss) 4. Facial Palsy - 0(Normal) 5a. Left Arm: Motor (10-second hold) - 0(No drift) 5b. Right Arm: Motor (10-second hold) - 0(No drift) 6a. Left Leg: Motor (5-second hold - always test supine) - 0(No drift) 6b. Right Leg: Motor (5-second hold - always test supine) - 0(No drift) 7. Limb Ataxia (finger/nose \\T\\ heel/johnson - test with eyes open) - 0(Absent) 8. Sensory Loss (pinprick arms/legs/face) - 0(Normal) 9. Best Language: Aphasia (description/naming/reading) - 0(No aphasia) 10. Dysarthria (speech clarity - read or repeat words) - 0(Normal) 11. Extinction and Inattention (visual/tactile/auditory/spatial/personal) - 0(No abnormality) Initials: ca1 Signatures: Dispatcher [employer] Hien Timmons Roman, MD MD rn Calderon, Audri, RN RN aa5 Ileana Denton RN RN ls4 Devorah Echeverria RN RN ca1 Corrections: (The following items were deleted from the chart) 12:01 11:50 Chief complaint: Patient states: "I was at work and my right eye went aa5 black for like 30 minutes and right now I am just seeing clear spots, like a fog over my right eye". Pt denies numbness/denies tingling/denies weakness. aa5 12:02 11:50 Chief complaint: Patient states: "I was at work and my right eye went aa5 black for like 30 minutes and right now I am just seeing clear spots, like a fog over my right eye". Pt denies numbness/denies tingling/denies weakness. Last known normal was 1120. aa5 12:38 12:38 NIHSS Score: 0 ca1 ca1 13:45 12:33 Cardiovascular: Heart tones S1 S2 present Capillary refill < 3 seconds ca1 Patient's skin is warm and dry. Rhythm is sinus rhythm ca1
--- NOTE | 2019-08-02 14:06 | EDPHYS ---
Physician Documentation [facility] Name: Bailee Esparza Age: 58 yrs Sex: Female : 1960 Arrival Date: 08/02/2019 Time: 11:38 Bed 17 Private MD: ED Physician Ar Sterling HPI: 08/01 12:59 This 58 yrs old Female presents to ER via Ambulatory with complaints of rn Vision Problem - seeing spots. 12:59 The patient is experiencing blurred vision, to the right eye. Onset: The rn symptoms/episode began/occurred 30 minute(s) ago. Duration: the symptoms are continuous. Aggravated by nothing. Alleviated by. Associated signs and symptoms: Pertinent positives: None. Pertinent negatives: fever, headache. Severity of symptoms: At their worst the symptoms were mild in the emergency department the symptoms have resolved. The patient has not experienced similar symptoms in the past. The patient has not recently seen a physician. Not assoc with focal neuro complaints, only vision, and now resolved. no trauma. No eye injury or splash. happened at work. Non-painful and only right eye.. Historical: - Allergies: 12:00 PENICILLINS; aa5 12:00 Sulfa (Sulfonamide Antibiotics); aa5 - PMHx: 12:00 Anxiety; Depression; aa5 - PSHx: 12:00 ; aa5 - Immunization history:: Adult Immunizations unknown. - Social history:: Smoking status: Patient reports the use of cigarette tobacco products, smokes one pack cigarettes per day. - Family history:: not pertinent. - Hospitalizations: : No recent hospitalization is reported. ROS: 12:59 Constitutional: Negative for fever, chills, and weight loss, Eyes: + blurred vision rn right eye ENT: Negative for injury, pain, and discharge, Neck: Negative for injury, pain, and swelling, Cardiovascular: Negative for chest pain, palpitations, and edema, Respiratory: Negative for shortness of breath, cough, wheezing, and pleuritic chest pain, Abdomen/GI: Negative for abdominal pain, nausea, vomiting, diarrhea, and constipation, MS/Extremity: Negative for injury and deformity, Skin: Negative for injury, rash, and discoloration, Neuro: Negative for headache, weakness, numbness, tingling, and seizure. Exam: 12:59 Visual Acuity: Visual acuity is within normal limits. rn 12:59 Constitutional: This is a well developed, well nourished patient who is awake, alert, and in no acute distress. Head/Face: Normocephalic, atraumatic. Eyes: Pupils equal round and reactive to light, extra-ocular motions intact. Lids and lashes normal. Conjunctiva and sclera are non-icteric and not injected. Cornea within normal limits. Periorbital areas with no swelling, redness, or edema. Visual becerril intact. NO hyphema or hypopyon. No injection. Neck: Trachea midline, no thyromegaly or masses palpated, and no cervical lymphadenopathy. Supple, full range of motion without nuchal rigidity, or vertebral point tenderness. No Meningismus. Cardiovascular: Regular rate and rhythm. No pulse deficits. Respiratory: No increased work of breathing, no retractions or nasal flaring. MS/ Extremity: Pulses equal, no cyanosis. Neurovascular intact. Full, normal range of motion. Equal circumference. Neuro: Awake and alert, GCS 15, oriented to person, place, time, and situation. Cranial nerves II-XII grossly intact. Motor strength 5/5 in all extremities. Sensory grossly intact. Cerebellar exam normal. Normal gait. Vital Signs: 11:50 BP 152 / 77; Pulse 66; Resp 18 S; Temp 98.4(O); Pulse Ox 95% on R/A; Weight 65.77 kg aa5 (R); Height 5 ft. 5 in. (165.10 cm) (R); Pain 0/10; 12:49 BP 124 / 64; Pulse 60; Resp 18 S; Pulse Ox 94% on R/A; ca1 13:46 BP 109 / 82; Pulse 57; Resp 15 S; Pulse Ox 98% on R/A; ca1 11:50 Body Mass Index 24.13 (65.77 kg, 165.10 cm) aa5 NIH Stroke Scale Scores: 12:10 NIHSS Score: 0 ca1 MDM: 11:54 Patient medically screened. rn 12:15 ED course: Symptoms have now returned to baseline, no visual disturbance upon arrival. rn Symptoms lasted approx 20-30 min.. 14:02 Differential diagnosis: ocular migraine, hypertension, amaurosis fugax, TIA. Data rn reviewed: vital signs, nurses notes, lab test result(s), EKG, radiologic studies, CT scan, and as a result, I will admit patient. Counseling: I had a detailed discussion with the patient and/or guardian regarding: the historical points, exam findings, and any diagnostic results supporting the discharge/admit diagnosis, lab results, radiology results, the need for further work-up and treatment in the hospital. Response to treatment: the patient's symptoms have markedly improved after treatment, the patient's symptoms have resolved after treatment, the patient's condition has returned to base line, the patient is now symptom free, and as a result, I will admit patient. Admission orders: after a detailed discussion of the patient's condition and case, the admit orders are written by me. ED course: Pt with signs and symptoms of possible TIA/amaurosis fugax, no acute findings in w/u, ws painless, monocular, and resolved, admitted to Dr. Stephens for TIA w/u. Dr. Barr available tomorrow fo consult and currently asymptomatic. . 14:31 ED course: Patient initially admitted to Dr. Stephens for TIA/amaurosis fugax w/u, now rn patient refuses admission, wants to go home, understands risks of not getting full w/u and wants to leave. Counseled against smoking, recommend aspirin and neuro/eye f/u. . 08/01 12:06 Order name: Basic Metabolic Panel; Complete Time: 12:49 rn 08/01 12:06 Order name: CBC with Diff; Complete Time: 12:49 rn 08/01 12:06 Order name: Protime (+inr); Complete Time: 12:49 rn 08/01 12:06 Order name: Ptt, Activated; Complete Time: 12:49 rn 08/01 12:06 Order name: CT Stroke Brain w/o Contrast; Complete Time: 13:56 rn 08/01 12:35 Order name: Glucose, Ancillary Testing; Complete Time: 12:49 EDMS 08/01 12:06 Order name: EKG; Complete Time: 12:07 rn 08/01 12:06 Order name: Accucheck; Complete Time: 12:27 rn 08/01 12:06 Order name: Cardiac monitoring; Complete Time: 12:27 rn 08/01 12:06 Order name: EKG - Nurse/Tech; Complete Time: 12:27 rn 08/01 12:06 Order name: IV Saline Lock; Complete Time: 12:27 rn 08/01 12:49 Order name: CT Head Angio; Complete Time: 13:56 rn 08/01 12:49 Order name: CT Neck Angio; Complete Time: 13:56 rn 08/01 12:06 Order name: Labs collected and sent; Complete Time: 12:27 rn 08/01 12:06 Order name: O2 Per Protocol; Complete Time: 12:27 rn 08/01 12:06 Order name: O2 Sat Monitoring; Complete Time: 12:27 rn 08/01 12:06 Order name: Stroke Swallow Screen; Complete Time: 12:33 rn Administered Medications: 12:33 Drug: NS 0.9% 500 ml Route: IV; Rate: bolus; Site: right antecubital; ca1 13:05 Follow up: IV Status: Completed infusion ca1 Point of Care Testing: Blood Glucose: 12:39 Blood Glucose: 99 mg/dL; ca1 Ranges: Critical Glucose Levels:Adult <50 mg/dl or >400 mg/dl <40 mg/dl or >180 mg/dl Disposition: 08/02/19 14:31 Discharged to Home. Impression: Visual disturbances, Amaurosis fugax. - Condition is Stable. - Discharge Instructions: Blurred Vision, Adult, Amaurosis Fugax. - Medication Reconciliation Form, Thank You Letter, Antibiotic Education, Prescription Opioid Use, Work release form form. - Follow up: Fawad Barr MD; When: As needed; Reason: Recheck today's complaints, Re-evaluation by your physician. Follow up: Ramy Monzon MD; When: As needed; Reason: Recheck today's complaints, Re-evaluation by your physician. - Problem is new. - Symptoms are resolved. NIH Stroke Scale - NIH Stroke Score Date: 08/02/2019 Time: 12:10 Total Score = 0 1a. Level of Consciousness (LOC) - 0(Alert) 1b. Level of Consciousness (LOC) (Year \T\ Age) - 0(Both) 1c. LOC Commands (Open \T\ Closes Eyes/Contemporary Or Modern Dancer) - 0(Both) 2. Best Gaze (Lateral Gaze Paresis) - 0(Normal) 3. Visual Field Loss - 0(No visual loss) 4. Facial Palsy - 0(Normal) 5a. Left Arm: Motor (10-second hold) - 0(No drift) 5b. Right Arm: Motor (10-second hold) - 0(No drift) 6a. Left Leg: Motor (5-second hold - always test supine) - 0(No drift) 6b. Right Leg: Motor (5-second hold - always test supine) - 0(No drift) 7. Limb Ataxia (finger/nose \T\ heel/johnson - test with eyes open) - 0(Absent) 8. Sensory Loss (pinprick arms/legs/face) - 0(Normal) 9. Best Language: Aphasia (description/naming/reading) - 0(No aphasia) 10. Dysarthria (speech clarity - read or repeat words) - 0(Normal) 11. Extinction and Inattention (visual/tactile/auditory/spatial/personal) - 0(No abnormality) Initials: ca1 Signatures: Dispatcher [employer] EDMS Ar Sterling MD MD rn Calderon, Marilyn, RN RN aa5 Ileana Denton RN RN ls4 Devorah Echeverria RN RN ca1 Corrections: (The following items were deleted from the chart) 14:30 14:04 Hospitalization Ordered by Haroon Stephens MD for Observation. Preliminary rn diagnosis is Unqualified visual loss, right eye, normal vision left eye; Amaurosis fugax. Bed requested for Telemetry/MedSurg (observation). Status is Observation. Condition is Stable. Problem is new. Symptoms have improved. rn 14:33 14:31 08/02/2019 14:31 Discharged to Home. Impression: Visual disturbances; rn Amaurosis fugax. Condition is Stable. Forms are Medication Reconciliation Form, Thank You Letter, Antibiotic Education, Prescription Opioid Use. Follow up: Fawad Barr; When: As needed; Reason: Recheck today's complaints, Re-evaluation by your physician. Follow up: Ramy Monzon; When: As needed; Reason: Recheck today's complaints, Re-evaluation by your physician. rn 14:48 14:33 08/02/2019 14:31 Discharged to Home. Impression: Visual disturbances; ls4 Amaurosis fugax. Condition is Stable. Discharge Instructions: Blurred Vision, Adult, Amaurosis Fugax. Forms are Medication Reconciliation Form, Thank You Letter, Antibiotic Education, Prescription Opioid Use. Follow up: Fawad Barr; When: As needed; Reason: Recheck today's complaints, Re-evaluation by your physician. Follow up: Ramy Monzon; When: As needed; Reason: Recheck today's complaints, Re-evaluation by your physician. Problem is new. Symptoms are resolved. rn
--- NOTE | 2019-08-02 14:30 | P.CNS ---
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 Patient came into the ER for further evaluation. She denies any nausea vomiting, headache fever chills or trauma. Her symptoms are constant moderate and intermittent. Workup including head CT scan and CT angio of head and neck were negative. Patient's symptoms improved slowly. Hospitalist service was requested for admission. Patient seen and examined and evaluated for possible TIA and to rule out CVA. Patient does have risk factors including tobacco use. Patient was not amenable to staying in the hospital stated that she wanted to leave and be with her . She understands that leaving the hospital would be against medical advice. She can have adverse outcomes including stroke permanent loss of vision and even . She voiced understanding and wished to sign out against medical advice. ER physician Dr. Sterling was informed. Allergies Sulfa (Sulfonamide Antibiotics) Allergy (Unverified 03/04/15 11:24) Unknown PENICILLINS Allergy (Uncoded 03/04/15 11:24) Unknown Home medications list reviewed: Yes - Past Medical/Surgical History Diabetic: No Past Medical History: Patient denies medical history -: Anxiety -: Depression -: - Social History Smoking Status: Current every day smoker, Heavy Tobacco smoker (>10 cigarettes/day) Smoking therapy provided: Yes Alcohol use: No Place of Residence: Home Review of Systems 10-point ROS is otherwise unremarkable Eyes: As per HPI Physical Examination Blood pressure 152/77, respirations 18, heart rate 66, temperature 98.4, O2 95% on room air General: Alert, In no apparent distress, Oriented x3 HEENT: Atraumatic, PERRLA, Mucous membr. moist/pink, EOMI, Sclerae nonicteric Neck: Supple, JVD not distended Respiratory: Clear to auscultation bilaterally, Normal air movement, Other (No wheezing or stridor) Cardiovascular: No edema, Normal pulses, Regular rate/rhythm, Normal S1 S2 Gastrointestinal: Normal bowel sounds, Soft and benign, Non-distended, No tenderness Musculoskeletal: No tenderness Integumentary: No rashes, No erythema Neurological: Normal gait, Normal speech, Normal strength at 5/5 x4 extr, Normal tone, Cranial nerves 3-12 intact Laboratory Data (last 24 hrs) 08/02/19 12:17: PT 11.9, INR 1.01, APTT 33.9 08/02/19 12:17: WBC 6.0, Hgb 15.0, Hct 45.5 H, Plt Count 178 08/02/19 12:17: Sodium 139, Potassium 3.9, BUN 12, Creatinine 0.62, Glucose 101 Imagings Data: EXAM DESCRIPTION: CT - Neck Angio - 08/02/2019 1:24 pm CLINICAL HISTORY: vision problem Headache, drowsiness, TIA symptomology COMPARISON: No comparisons TECHNIQUE: CT angiography of the neck vessels was performed with MIPs. All CT scans are performed using dose optimization technique as appropriate and may include automated exposure control or mA/KV adjustment according to patient size. FINDINGS: A left aortic arch is identified with normal three vessel configuration of the great vessels. No significant flow abnormality is seen of the common carotid bilaterally. No significant stenosis is identified involving the cervical segments of both internal carotid arteries. Mild hard plaquing is seen in the region of both carotid bulbs. Normal flow is seen within both vertebral arteries. IMPRESSION: Mild hard plaquing is seen in both carotid bulbs without evidence of significant carotid stenosis. EXAM DESCRIPTION: CT - Head angio - 08/02/2019 1:24 pm CLINICAL HISTORY: vision problem Headache, drowsiness, TIA symptomology COMPARISON: Ct Stroke Brain Wo Cont dated 08/02/2019 TECHNIQUE: CT angiography of the head was performed with MIPs. All CT scans are performed using dose optimization technique as appropriate and may include automated exposure control or mA/KV adjustment according to patient size. FINDINGS: No evidence of aneurysm is detected. No flow-limiting stenosis or vascular malformation identified. Antegrade flow is seen in the vertebral arteries. The vertebral arteries are codominant. The visualized dural venous sinuses are patent. IMPRESSION: No significant flow abnormality is detected. EXAM DESCRIPTION: CT - Ct Stroke Brain Wo Cont - 08/02/2019 1:31 pm CLINICAL HISTORY: transient right monocular vision changes Headache, drowsiness. COMPARISON: No comparisons TECHNIQUE: All CT scans are performed using dose optimization technique as appropriate and may include automated exposure control or mA/KV adjustment according to patient size. FINDINGS: No intracranial hemorrhage, hydrocephalus or extra-axial fluid collection.5 mm colloid cyst is suspected.No areas of brain edema or evidence of midline shift. The paranasal sinuses and mastoids are clear. The calvarium is intact. IMPRESSION: No acute intracranial abnormality. 5 mm colloid cyst is suspected. The findings were discussed with Dr. Sterling in the ER On 08/02/2019 at 12:15 p.m. by telephone. Conclusions/Impression: 50-year-old female with 1. TIA. Patient had transient visual changes in the right eye. CT head and CT angio head and neck are negative. 2. Generalized anxiety disorder stable 3. Major depressive disorder stable 4. Nicotine dependence with cigarette smoking counseled Patient does not wish to stay in the hospital. She is leaving against medical advice. She understands the risks as detailed above. She will need to be followed up with neurology and ophthalmology as outpatient.
[2019-08-02 14:56] VITALS: TEMP 98.4
[2019-08-02 14:59] VITALS: BP 109/82; O2SAT 98
--- NOTE | 2019-08-03 10:51 | EKG ---
Test Date: 2019-08-02 Test Time: 12:27:38 Police Booking Officer: MELODY MEASUREMENT RESULTS: Intervals: Rate: 63 ME: 150 QRSD: 90 QT: 464 QTc: 474 [place]: P: 72 ME: 150 QRS: 31 T: 47 INTERPRETIVE STATEMENTS: Normal sinus rhythm Prolonged QT Abnormal ECG Compared to ECG 03/02/2015 22:04:01 Prolonged QT interval now present Sinus bradycardia no longer present Electronically Signed On 08-03-19 10:49:12 CDT by Matt Oseguera
== END 2019-08-02 14:48 | disposition home or self-care (01) ==
LOC: ER 11:38
DX: G45.3 Amaurosis fugax (principal); F17.210 Nicotine dependence, cigarettes, uncomplicated; Z88.0 Allergy status to penicillin; Z88.2 Allergy status to sulfonamides
CPT/HCPCS: 36415; 70450; 70496; 70498; 80048; 82947; 85025; 85610; 85730; 93005; 96360; 99284; J7040; Q9967

== ENCOUNTER 2020-01-11 13:56 | Emergency (ER) | payer SELFPAY ==
--- NOTE | 2020-01-11 14:18 | EDPHYS ---
Physician Documentation [facility] Name: Bailee Esparza Age: 59 yrs Sex: Female : 1960 Arrival Date: 01/11/2020 Time: 13:58 Bed 13 Private MD: CONNIE Physician Hiram Lindsey HPI: 01/10 14:14 This 59 yrs old Female presents to ER via Ambulatory with complaints of Hives.kb 14:14 The patient's rash thought to be caused by medication. The rash is located on the body kb diffusely. The rash can be described as erythematous. Onset: The symptoms/episode began/occurred 2 week(s) ago. Associated signs and symptoms: Pertinent positives: itching. Severity of symptoms: At their worst the symptoms were moderate in the emergency department the symptoms are unchanged. The patient has not experienced similar symptoms in the past. The patient has not recently seen a physician. pt complains of itchy rash that started 2 weeks ago. Pt was taking hydroxyzine for anxiety when the rash started so she believes that is the cause. Stopped taking the medication a week ago, but still has the rash. Also complains of lice that she has been unable to get rid of.. Historical: - Allergies: 14:08 PENICILLINS; iw 14:08 Sulfa (Sulfonamide Antibiotics); iw - Home Meds: 14:08 Geodon Oral [Active]; Trazodone Oral [Active]; citalopram oral [Active]; iw - PMHx: 14:08 Anxiety; Depression; iw - PSHx: 14:08 ; iw - Immunization history:: Adult Immunizations not up to date. - Social history:: Smoking status: Patient reports the use of cigarette tobacco products, smokes one-half pack cigarettes per day. ROS: 14:14 Constitutional: Negative for fever, chills, and weight loss, Cardiovascular: Negative kb for chest pain, palpitations, and edema, Respiratory: Negative for shortness of breath, cough, wheezing, and pleuritic chest pain, Abdomen/GI: Negative for abdominal pain, nausea, vomiting, diarrhea, and constipation, Back: Negative for injury and pain, MS/Extremity: Negative for injury and deformity, Neuro: Negative for headache, weakness, numbness, tingling, and seizure. 14:14 Skin: Positive for rash, diffusely. Exam: 14:14 Constitutional: This is a well developed, well nourished patient who is awake, alert, kb and in no acute distress. Head/Face: Normocephalic, atraumatic. Chest/axilla: Normal chest wall appearance and motion. Nontender with no deformity. No lesions are appreciated. Cardiovascular: Regular rate and rhythm with a normal S1 and S2. No gallops, murmurs, or rubs. Normal PMI, no JVD. No pulse deficits. Respiratory: Lungs have equal breath sounds bilaterally, clear to auscultation and percussion. No rales, rhonchi or wheezes noted. No increased work of breathing, no retractions or nasal flaring. Abdomen/GI: Soft, non-tender, with normal bowel sounds. No distension or tympany. No guarding or rebound. No evidence of tenderness throughout. MS/ Extremity: Pulses equal, no cyanosis. Neurovascular intact. Full, normal range of motion. Neuro: Awake and alert, GCS 15, oriented to person, place, time, and situation. Cranial nerves II-XII grossly intact. Motor strength 5/5 in all extremities. Sensory grossly intact. Cerebellar exam normal. Normal gait. 14:14 Skin: consistent with scabies. Vital Signs: 14:06 BP 113 / 92; Pulse 105; Resp 16; Temp 98.2; Pulse Ox 95% on R/A; Weight 58.97 kg; iw Height 5 ft. 4 in. (162.56 cm); Pain 0/10; 14:06 Body Mass Index 22.31 (58.97 kg, 162.56 cm) iw MDM: 14:01 Patient medically screened. kb 14:14 Data reviewed: vital signs, nurses notes. Data interpreted: Pulse oximetry: on room air kb is 95 %. Interpretation: normal. Counseling: I had a detailed discussion with the patient and/or guardian regarding: the historical points, exam findings, and any diagnostic results supporting the discharge/admit diagnosis, the need for outpatient follow up, a family practitioner, to return to the emergency department if symptoms worsen or persist or if there are any questions or concerns that arise at home. Administered Medications: No medications were administered Disposition: 15:06 Co-signature as Attending Physician, Hiram Lindsey MD I agree with the assessment and holly plan of care. Disposition: 01/11/20 14:17 Discharged to Home. Impression: Scabies, Pediculosis due to Pediculus humanus capitis. - Condition is Stable. - Discharge Instructions: Lice, Adult, Scabies, Adult. - Prescriptions for permethrin 1 % Topical liquid - apply 1 application by TOPICAL route one time allow to remain on hair for 10 minutes before rinsing off with water, may repeat in 9 days; 1 tube. Elimite 5 % Topical Cream - apply 1 application by TOPICAL route one time Wash after 12 hours.; 60 gram. - Medication Reconciliation Form, Thank You Letter, Antibiotic Education, Prescription Opioid Use, Work release form form. - Follow up: Emergency Department; When: As needed; Reason: Worsening of condition. Follow up: Private Physician; When: 2 - 3 days; Reason: Recheck today's complaints, Continuance of care, Re-evaluation by your physician. Signatures: Tressa Tucker, COORDINATE MEASURING MACHINE OPERATOR-C COORDINATE MEASURING MACHINE OPERATOR-Ckb Hiram Lindsey MD MD cha Williams, Irene, RN RN iw Corrections: (The following items were deleted from the chart) 14:29 14:17 01/11/2020 14:17 Discharged to Home. Impression: Scabies; Pediculosis due to iw Pediculus humanus capitis. Condition is Stable. Forms are Medication Reconciliation Form, Thank You Letter, Antibiotic Education, Prescription Opioid Use. Follow up: Emergency Department; When: As needed; Reason: Worsening of condition. Follow up: Private Physician; When: 2 - 3 days; Reason: Recheck today's complaints, Continuance of care, Re-evaluation by your physician. kb
--- NOTE | 2020-01-11 14:18 | ER ---
Nurse's Notes [facility] Name: Bailee Esparza Age: 59 yrs Sex: Female : 1960 Arrival Date: 01/11/2020 Time: 13:58 Bed 13 Private MD: Diagnosis: Scabies;Pediculosis due to Pediculus humanus capitis Presentation: 01/10 14:06 Chief complaint: Patient states: itchy rash all over body X 2 weeks, also has lice. iw Coronavirus screen: At this time, the client does not indicate any symptoms associated with coronavirus-19. Ebola Screen: Patient negative for fever greater than or equal to 101.5 degrees Fahrenheit, and additional compatible Ebola Virus Disease symptoms Patient denies exposure to infectious person. Patient denies travel to an Ebola-affected area in the 21 days before illness onset. No symptoms or risks identified at this time. Anaphylaxis evaluation, no signs or symptoms of anaphylaxis were noted. Initial Sepsis Screen: Does the patient meet any 2 criteria? No. Patient's initial sepsis screen is negative. Does the patient have a suspected source of infection? No. Patient's initial sepsis screen is negative. Risk Assessment: Do you want to hurt yourself or someone else? Patient reports no desire to harm self or others. Onset of symptoms was December 28, 2019. 14:06 Method Of Arrival: Ambulatory iw 14:06 Acuity: ARMANDO 5 iw 14:07 Onset: The symptoms/episode began/occurred 2 week(s) ago. iw Historical: - Allergies: 14:08 PENICILLINS; iw 14:08 Sulfa (Sulfonamide Antibiotics); iw - Home Meds: 14:08 Geodon Oral [Active]; Trazodone Oral [Active]; citalopram oral [Active]; iw - PMHx: 14:08 Anxiety; Depression; iw - PSHx: 14:08 ; iw - Immunization history:: Adult Immunizations not up to date. - Social history:: Smoking status: Patient reports the use of cigarette tobacco products, smokes one-half pack cigarettes per day. Screenin:09 Abuse screen: Denies threats or abuse. Denies injuries from another. Nutritional iw screening: No deficits noted. Tuberculosis screening: No symptoms or risk factors identified. Fall Risk None identified. Assessment: 14:09 General: Appears in no apparent distress. Behavior is calm, cooperative. Pain: Denies iw pain. Neuro: Level of Consciousness is awake, alert, obeys commands, Oriented to person, place, time, situation, Moves all extremities. Full function. Cardiovascular: Patient's skin is warm and dry. Respiratory: Airway is patent Respiratory effort is even, unlabored, Breath sounds are clear bilaterally. GI: No signs and/or symptoms were reported involving the gastrointestinal system. Derm: Rash noted that is itchy, on back, chest, abdomen, right arm and left arm. Musculoskeletal: Range of motion: intact in all extremities. Vital Signs: 14:06 BP 113 / 92; Pulse 105; Resp 16; Temp 98.2; Pulse Ox 95% on R/A; Weight 58.97 kg; iw Height 5 ft. 4 in. (162.56 cm); Pain 0/10; 14:06 Body Mass Index 22.31 (58.97 kg, 162.56 cm) iw ED Course: 13:58 Patient arrived in ED. as 14:01 Tressa Tucker F[facility]-C [facility]. kb 14:01 Hiram Lindsey MD is Attending Physician. kb 14:06 Pamella Su, RN is Primary Nurse. iw 14:07 Triage completed. iw 14:07 Arm band placed on. iw 14:09 Patient has correct armband on for positive identification. iw 14:10 No provider procedures requiring assistance completed. Patient did not have IV access iw during this emergency room visit. Administered Medications: No medications were administered Outcome: 14:17 Discharge ordered by . kb 14:28 Discharged to home ambulatory. iw 14:28 Condition: good 14:28 Discharge instructions given to patient, Instructed on discharge instructions, follow up and referral plans. medication usage, Demonstrated understanding of instructions, follow-up care, medications, Prescriptions given X 2. 14:29 Patient left the ED. iw Signatures: Tressa Tucker FNP-C FNP-Hien Sarkar as Pamella Su, RN RN iw
[2020-01-11 14:51] VITALS: BP 113/92; TEMP 98.2; O2SAT 95
== END 2020-01-11 14:29 | disposition home or self-care (01) ==
LOC: ER 13:56
DX: B86 Scabies (principal); B85.0 Pediculosis due to Pediculus humanus capitis; F41.8 Other specified anxiety disorders; F17.210 Nicotine dependence, cigarettes, uncomplicated; Z88.0 Allergy status to penicillin; Z88.2 Allergy status to sulfonamides
CPT/HCPCS: 99282

== ENCOUNTER 2020-01-19 12:02 | Emergency (ER) | payer SELFPAY ==
--- NOTE | 2020-01-19 13:21 | ER ---
Nurse's Notes [facility] Name: Bailee Esparza Age: 59 yrs Sex: Female : 1960 Arrival Date: 01/19/2020 Time: 12:03 Bed 6 Private MD: Diagnosis: Scabies Presentation: 01/18 12:21 Chief complaint: Patient states: Treated for scabies 01/10. States her rash sites are ll1 getting better, still has itching. Would like a return to work note, and eval of scabies. Coronavirus screen: Client denies travel out of the [place] in the last 14 days. At this time, the client does not indicate any symptoms associated with coronavirus-19. Ebola Screen: Patient denies travel to an Ebola-affected area in the 21 days before illness onset. Initial Sepsis Screen: Does the patient meet any 2 criteria? No. Patient's initial sepsis screen is negative. Does the patient have a suspected source of infection? Yes: Skin breakdown/wound. Risk Assessment: Do you want to hurt yourself or someone else? Patient reports no desire to harm self or others. Onset of symptoms was January 09, 2020. 12:21 Method Of Arrival: Ambulatory ll1 12:21 Acuity: ARMANDO 4 ll1 Historical: - Allergies: 12:25 PENICILLINS; ll1 12:25 Sulfa (Sulfonamide Antibiotics); ll1 - PMHx: 12:25 Anxiety; Depression; ll1 - PSHx: 12:25 ; ll1 - Immunization history:: Flu vaccine is not up to date. - Social history:: Smoking status: Patient reports the use of cigarette tobacco products, smokes one pack cigarettes per day. Screenin:23 Abuse screen: Denies threats or abuse. Nutritional screening: No deficits noted. vg1 Tuberculosis screening: No symptoms or risk factors identified. Fall Risk No IV (0 pts). Ambulatory Aid- None/Bed Rest/Nurse Assist (0 pts). Gait- Normal/Bed Rest/Wheelchair (0 pts) Mental Status- Oriented to own ability (0 pts). Total Almaraz Fall Scale indicates No Risk (0-24 pts). Assessment: 13:20 General: Appears in no apparent distress. comfortable, Behavior is calm, cooperative, vg1 Reports wants to have scabies evaluated so can go back to work. Pain: Denies pain. Neuro: Level of Consciousness is awake, alert, obeys commands, Oriented to person, place, time, situation. Cardiovascular: Capillary refill < 3 seconds Patient's skin is warm and dry. Respiratory: Airway is patent Respiratory effort is even, unlabored, Respiratory pattern is regular, symmetrical. GI: No signs and/or symptoms were reported involving the gastrointestinal system. : No signs and/or symptoms were reported regarding the genitourinary system. EENT: No signs and/or symptoms were reported regarding the EENT system. Derm: Skin is intact, Rash noted that is itchy, red, on back, abdomen, right arm and left arm. Musculoskeletal: Capillary refill < 3 seconds, Range of motion: intact in all extremities. Vital Signs: 12:21 Pulse 84; Resp 17; Temp 98.7; Pulse Ox 100% ; Weight 63.5 kg; Height 5 ft. 4 in. ll1 (162.56 cm); Pain 0/10; 12:26 BP 97 / 72; ll1 12:21 Body Mass Index 24.03 (63.50 kg, 162.56 cm) ll1 ED Course: 12:03 Patient arrived in ED. ds1 12:24 Triage completed. ll1 12:25 Arm band placed on. ll1 13:11 Shanda Valenzuela RN is Primary Nurse. 13:15 Sean Ferrera PA is PHCP. [facility] 13:15 Damian Preston MD is Attending Physician. [facility] 13:24 Patient has correct armband on for positive identification. Door closed. vg1 13:24 No provider procedures requiring assistance completed. Patient did not have IV access vg1 during this emergency room visit. Administered Medications: No medications were administered Outcome: 13:19 Discharge ordered by . [facility] 13:28 Patient left the ED. 1 Signatures: Carolina Lewis RN RN sv Mickail, Joel, PA PA jmm Sanford, Demi ds1 Shanda Valenzuela RN RN vg1 Isak Arguello RN RN [facility]
--- NOTE | 2020-01-19 13:21 | EDPHYS ---
Physician Documentation [facility] Name: Bailee Esparza Age: 59 yrs Sex: Female : 1960 Arrival Date: 01/19/2020 Time: 12:03 Bed 6 Private MD: ED Physician Damian Preston HPI: 01/18 13:15 This 59 yrs old Female presents to ER via Ambulatory with complaints of jmm Scabies. 13:15 The patient's rash thought to be caused by scabies. Onset: The symptoms/episode jmm began/occurred gradually. Associated signs and symptoms: Pertinent positives: itching, Pertinent negatives: fever, Pain swelling of lips, swelling of throat, swelling of tongue. Treatment given at home: Benadryl, permethrin. Historical: - Allergies: 12:25 PENICILLINS; ll1 12:25 Sulfa (Sulfonamide Antibiotics); ll1 - PMHx: 12:25 Anxiety; Depression; ll1 - PSHx: 12:25 ; ll1 - Immunization history:: Flu vaccine is not up to date. - Social history:: Smoking status: Patient reports the use of cigarette tobacco products, smokes one pack cigarettes per day. ROS: 13:15 Constitutional: Negative for fever, chills, and weight loss, Cardiovascular: Negative jmm for chest pain, palpitations, and edema, Respiratory: Negative for shortness of breath, cough, wheezing, and pleuritic chest pain. 13:15 Skin: Positive for rash. 13:15 All other systems are negative. Exam: 13:15 Constitutional: This is a well developed, well nourished patient who is awake, alert, jmm and in no acute distress. Head/Face: atraumatic. Eyes: EOMI, no conjunctival erythema appreciated ENT: Moist Mucus Membranes Neck: Trachea midline, Supple Chest/axilla: Normal chest wall appearance and motion. Cardiovascular: Regular rate and rhythm. No edema appreciated Respiratory: Normal respirations, no respiratory distress appreciated Abdomen/GI: Non distended, soft Back: Normal ROM 13:15 Skin: diffuse papular rash noted to the arms and abdomen with crusting. no erythema or induration appreciated. 13:15 Neuro: Orientation: is normal, Mentation: is normal, Memory: is normal. 13:15 Psych: Behavior/mood is pleasant, cooperative. Vital Signs: 12:21 Pulse 84; Resp 17; Temp 98.7; Pulse Ox 100% ; Weight 63.5 kg; Height 5 ft. 4 in. ll1 (162.56 cm); Pain 0/10; 12:26 BP 97 / 72; ll1 12:21 Body Mass Index 24.03 (63.50 kg, 162.56 cm) ll1 MDM: 13:15 Patient medically screened. josh 13:18 Data reviewed: vital signs, nurses notes. Counseling: I had a detailed discussion with kiara the patient and/or guardian regarding: the historical points, exam findings, and any diagnostic results supporting the discharge/admit diagnosis, the need for outpatient follow up, to return to the emergency department if symptoms worsen or persist or if there are any questions or concerns that arise at home. Administered Medications: No medications were administered Disposition: 01/19 06:34 Co-signature as Attending Physician, Damian Preston MD I agree with the assessment and kdr plan of care. Disposition: 01/19/20 13:19 Discharged to Home. Impression: Scabies. - Condition is Stable. - Discharge Instructions: Scabies, Adult, Form - Return To Work. - Prescriptions for Elimite 5 % Topical Cream - apply 1 application by TOPICAL route one time Wash after 12 hours.; 60 gram. - Work release form, Medication Reconciliation Form, Thank You Letter, Antibiotic Education, Prescription Opioid Use form. - Follow up: Private Physician; When: 2 - 3 days; Reason: Recheck today's complaints, Continuance of care, Re-evaluation by your physician. Signatures: Damian Preston MD MD kdr Mickail, Joel, PA PA [facility] Shanda Valenzuela, RN RN vg1 Isak Arguello, JARRETT RN ll1 Corrections: (The following items were deleted from the chart) 01/18 13:28 13:19 01/19/2020 13:19 Discharged to Home. Impression: Scabies. Condition is Stable. vg1 Forms are Work release form, Medication Reconciliation Form, Thank You Letter, Antibiotic Education, Prescription Opioid Use. Follow up: Private Physician; When: 2 - 3 days; Reason: Recheck today's complaints, Continuance of care, Re-evaluation by your physician. kiara
[2020-01-19 14:37] VITALS: TEMP 98.7; O2SAT 100
[2020-01-19 14:38] VITALS: BP 97/72
== END 2020-01-19 13:28 | disposition home or self-care (01) ==
LOC: ER 12:02
DX: B86 Scabies (principal); F17.210 Nicotine dependence, cigarettes, uncomplicated; Z88.0 Allergy status to penicillin; Z88.2 Allergy status to sulfonamides
CPT/HCPCS: 99281

== ENCOUNTER 2020-11-16 09:47 | Emergency (ER) | payer SELFPAY ==
--- NOTE | 2020-11-16 11:17 | EDPHYS ---
Physician Documentation [facility] Name: Bailee Esparza Age: 59 yrs Sex: Female : 1960 Arrival Date: 11/16/2020 Time: 09:59 Bed Waiting Private MD: ED Physician Ar Sterling HPI: 11/16 11:13 This 59 yrs old Female presents to ER via Ambulatory with complaints of n/v/d.jr8 11:13 Onset: The symptoms/episode began/occurred acutely, today. The symptoms do not radiate. jr8 Associated signs and symptoms: Pertinent positives: nausea, vomiting, and diarrhea. Modifying factors: The symptoms are alleviated by nothing, the symptoms are aggravated by food. Severity of pain: At its worst the pain was mild in the emergency department the pain is unchanged. The patient has not experienced similar symptoms in the past. The patient has not recently seen a physician. N/V/D that started abruptly this AM. Denies any other symptoms at this time. . Historical: - Allergies: 11:05 PENICILLINS; ss 11:05 Sulfa (Sulfonamide Antibiotics); ss - PMHx: 11:05 Anxiety; Depression; ss - Immunization history:: Client reports receiving the 2nd dose of the Covid vaccine. - Social history:: Smoking status: Patient reports the use of cigarette tobacco products, smokes one pack cigarettes per day. ROS: 11:13 Eyes: Negative for injury, pain, redness, and discharge, ENT: Negative for injury, jr8 pain, and discharge, Neck: Negative for injury, pain, and swelling, Cardiovascular: Negative for chest pain, palpitations, and edema, Respiratory: Negative for shortness of breath, cough, wheezing, and pleuritic chest pain, Back: Negative for injury and pain, MS/Extremity: Negative for injury and deformity, Skin: Negative for injury, rash, and discoloration, Neuro: Negative for headache, weakness, numbness, tingling, and seizure. 11:13 Abdomen/GI: Positive for nausea, vomiting, and diarrhea, Negative for abdominal pain. Exam: 11:13 Constitutional: This is a well developed, well nourished patient who is awake, alert, jr8 and in no acute distress. Eyes: Pupils equal round and reactive to light, extra-ocular motions intact. Lids and lashes normal. Conjunctiva and sclera are non-icteric and not injected. Cornea within normal limits. Periorbital areas with no swelling, redness, or edema. ENT: Nares patent. No nasal discharge, no septal abnormalities noted. Tympanic membranes are normal and external auditory canals are clear. Oropharynx with no redness, swelling, or masses, exudates, or evidence of obstruction, uvula midline. Mucous membranes moist. Neck: Trachea midline, no thyromegaly or masses palpated, and no cervical lymphadenopathy. Supple, full range of motion without nuchal rigidity, or vertebral point tenderness. No Meningismus. Cardiovascular: Regular rate and rhythm with a normal S1 and S2. No gallops, murmurs, or rubs. Normal PMI, no JVD. No pulse deficits. Respiratory: Lungs have equal breath sounds bilaterally, clear to auscultation and percussion. No rales, rhonchi or wheezes noted. No increased work of breathing, no retractions or nasal flaring. Abdomen/GI: Soft, non-tender, with normal bowel sounds. No distension or tympany. No guarding or rebound. No evidence of tenderness throughout. Back: No spinal tenderness. No costovertebral tenderness. Full range of motion. Skin: Warm, dry with normal turgor. Normal color with no rashes, no lesions, and no evidence of cellulitis. MS/ Extremity: Pulses equal, no cyanosis. Neurovascular intact. Full, normal range of motion. Neuro: Awake and alert, GCS 15, oriented to person, place, time, and situation. Cranial nerves II-XII grossly intact. Motor strength 5/5 in all extremities. Sensory grossly intact. Cerebellar exam normal. Normal gait. Vital Signs: 11:04 BP 156 / 81; Pulse 64; Resp 18; Temp 98.5(TE); Pulse Ox 98% on R/A; Weight 58.97 kg; ss Height 5 ft. 4 in. (162.56 cm); Pain 0/10; 11:04 Body Mass Index 22.31 (58.97 kg, 162.56 cm) ss MDM: 11:13 Data reviewed: vital signs, nurses notes, and as a result, I will discharge patient. jr8 Data interpreted: Pulse oximetry: on room air is 98 %. Interpretation: normal. Counseling: I had a detailed discussion with the patient and/or guardian regarding: the historical points, exam findings, and any diagnostic results supporting the discharge/admit diagnosis, the need for outpatient follow up, a family practitioner, to return to the emergency department if symptoms worsen or persist or if there are any questions or concerns that arise at home. ED course: Patient upon arrival to ER is feeling much better. Needs work note for next couple days for work. 11:16 Patient medically screened. jr8 Administered Medications: No medications were administered Disposition: 11:27 Co-signature as Attending Physician, Ar Sterling MD. rn 11:27 I agree with the assessment and plan of care. rn Disposition Summary: 11/16/20 11:16 Discharge Ordered Location: Home jr8 Problem: new jr8 Symptoms: have improved jr8 Condition: Stable jr8 Diagnosis - Vomiting jr8 - Diarrhea, unspecified jr8 Followup: jr8 - With: Private Physician - When: 2 - 3 days - Reason: Recheck today's complaints, Continuance of care, Re-evaluation by your physician Discharge Instructions: - Discharge Summary Sheet jr8 - Diarrhea, Adult jr8 - Nausea and Vomiting, Adult jr8 Forms: - Medication Reconciliation Form jr8 - Work release form jr8 - Thank You Letter jr8 - Antibiotic Education jr8 - Prescription Opioid Use jr8 Prescriptions: - Zofran 4 mg Oral Tablet - take 1 tablet by ORAL route every 12 hours As needed; 20 tablet; Refills: 0, jr8 Product Selection Permitted Signatures: Ar Sterling MD MD rn Smirch, Shelby, RN RN ss Roszak, Josh, PA PA jr8
--- NOTE | 2020-11-16 11:17 | ER ---
Nurse's Notes [facility] Name: Bailee Esparza Age: 59 yrs Sex: Female : 1960 Arrival Date: 11/16/2020 Time: 09:59 Bed Waiting Private MD: Diagnosis: Vomiting;Diarrhea, unspecified Presentation: 11/16 11:04 Chief complaint: Patient states: "I just need a work note". Pt reports episode of ss Nausea and diarrhea on her way to work this morning, but has subsided. Coronavirus screen: Client denies travel out of the [place] in the last 14 days. Ebola Screen: Patient denies exposure to infectious person. Patient denies travel to an Ebola-affected area in the 21 days before illness onset. Initial Sepsis Screen: Does the patient meet any 2 criteria? No. Patient's initial sepsis screen is negative. Does the patient have a suspected source of infection? No. Patient's initial sepsis screen is negative. Risk Assessment: Do you want to hurt yourself or someone else? Patient reports no desire to harm self or others. Onset of symptoms was November 16, 2020. 11:04 Method Of Arrival: Ambulatory ss 11:04 Acuity: ARMANDO 5 ss Historical: - Allergies: 11:05 PENICILLINS; ss 11:05 Sulfa (Sulfonamide Antibiotics); ss - PMHx: 11:05 Anxiety; Depression; ss - Immunization history:: Client reports receiving the 2nd dose of the Covid vaccine. - Social history:: Smoking status: Patient reports the use of cigarette tobacco products, smokes one pack cigarettes per day. Vital Signs: 11:04 BP 156 / 81; Pulse 64; Resp 18; Temp 98.5(TE); Pulse Ox 98% on R/A; Weight 58.97 kg; ss Height 5 ft. 4 in. (162.56 cm); Pain 0/10; 11:04 Body Mass Index 22.31 (58.97 kg, 162.56 cm) ED Course: :59 Patient arrived in ED. ds1 11:05 Triage completed. ss 11:05 Arm band placed on right wrist. ss 11:13 Prosper Whatley PA is PHCP. jr8 11:13 Ar Sterling MD is Attending Physician. jr8 11:22 Smirch, Holley, RN is Primary Nurse. 11:24 No provider procedures requiring assistance completed. Patient did not have IV access ss during this emergency room visit. Administered Medications: No medications were administered Outcome: 11:16 Discharge ordered by MD. fatima 11:24 Discharged to home ambulatory. ss 11:24 Condition: good 11:24 Discharge instructions given to patient, Instructed on discharge instructions, follow up and referral plans. Demonstrated understanding of instructions, follow-up care. 11:24 Patient left the ED. Signatures: Karen Ojeda ds1 Holley Spann, JARRETT RN Prosper Whatley PA PA jr8
[2020-11-16 11:31] VITALS: BP 156/81; TEMP 98.5; O2SAT 98
== END 2020-11-16 11:24 | disposition home or self-care (01) ==
LOC: ER 09:47
DX: R19.7 Diarrhea, unspecified (principal); F17.210 Nicotine dependence, cigarettes, uncomplicated; Z88.0 Allergy status to penicillin; Z88.2 Allergy status to sulfonamides
CPT/HCPCS: 99281

== ENCOUNTER 2021-02-10 13:19 | Emergency (ER) | payer SELFPAY ==
[2021-02-10] MEDS ORDERED: NA CHLORIDE 0.9% 1,000 ML ONE (13:59)
[2021-02-10] MEDS ORDERED: ONDANSETRON 4 MG/2 ML VIAL ONE (13:59)
[2021-02-10 14:22] LABS: Absolute Lymphocytes (CBC) 0.9 K/uL (0.7-4.9); Basophils % 0.3 % (0-1.3); Hematocrit 39.2 % (36.0-45.0); Lymphocytes % 12.4 % (15.3-44.8); RBC Red Blood Cell Count 4.85 M/uL (3.86-4.86)
[2021-02-10 14:39] LABS: ALT/SGPT 47 U/L (12-78); AST/SGOT 17 U/L (15-37); Albumin 2.5 g/dL (3.4-5.0); Alkaline Phosphatase 108 U/L (45-117); BUN Blood Urea Nitrogen 8 mg/dL (7-18); Bicarbonate 27 mmol/L (21-32); Bilirubin Direct 0.2 mg/dL (0-0.2); Bilirubin Total 0.6 mg/dL (0.2-1.0); Glucose Level 106 mg/dL (74-106); Lipase 146 U/L (73-393); Potassium 3.9 mmol/L (3.5-5.1); Protein, Total 7.3 g/dL (6.4-8.2); Sodium Level 137 mmol/L (136-145)
--- NOTE | 2021-02-10 14:43 | ER ---
Nurse's Notes [facility] Name: Bailee Esparza Age: 60 yrs Sex: Female : 1960 Arrival Date: 02/10/2021 Time: 13:21 Bed 20 Private MD: Diagnosis: Nausea with vomiting, unspecified Presentation: 02/10 13:54 Chief complaint: Patient states: N/V x 3 days. Feeling better, but needs a work note. ss Denies abd pain. Coronavirus screen: Client denies travel out of the [place] in the last 14 days. Ebola Screen: Patient denies exposure to infectious person. Patient denies travel to an Ebola-affected area in the 21 days before illness onset. Initial Sepsis Screen: Does the patient meet any 2 criteria? No. Patient's initial sepsis screen is negative. Does the patient have a suspected source of infection? No. Patient's initial sepsis screen is negative. Risk Assessment: Do you want to hurt yourself or someone else? Patient reports no desire to harm self or others. Onset of symptoms was February 07, 2021. 13:54 Method Of Arrival: Ambulatory ss 13:54 Acuity: ARMANDO 3 ss Historical: - Allergies: 13:25 PENICILLINS; ss 13:25 Sulfa (Sulfonamide Antibiotics); ss - PMHx: 13:25 Anxiety; Depression; ss Screenin:18 Abuse screen: Denies threats or abuse. Nutritional screening: Has had N/V for 3 or more vg1 days. Tuberculosis screening: No symptoms or risk factors identified. Fall Risk No fall in past 12 months (0 pts). No secondary diagnosis (0 pts). IV access (20 points). Ambulatory Aid- None/Bed Rest/Nurse Assist (0 pts). Gait- Normal/Bed Rest/Wheelchair (0 pts) Mental Status- Oriented to own ability (0 pts). Total Almaraz Fall Scale indicates No Risk (0-24 pts). Assessment: 14:17 General: Appears in no apparent distress. comfortable, Behavior is calm, cooperative. vg1 Pain: Denies pain. Neuro: Level of Consciousness is awake, alert, obeys commands, Oriented to person, place, time, situation. Cardiovascular: Patient's skin is warm and dry. Respiratory: Airway is patent Respiratory effort is even, unlabored. GI: Abdomen is flat, Bowel sounds present X 4 quads. Abd is soft and non tender Reports nausea, vomiting, Patient currently denies pain. : No signs and/or symptoms were reported regarding the genitourinary system. EENT: No signs and/or symptoms were reported regarding the EENT system. Derm: Skin is intact, is healthy with good turgor. Musculoskeletal: Circulation, motion, and sensation intact. 15:00 Reassessment: Patient appears in no apparent distress at this time. Patient and/or vg1 family updated on plan of care and expected duration. Pain level reassessed. Patient is alert, oriented x 3, equal unlabored respirations, skin warm/dry/pink. Patient denies pain at this time. Patient states feeling better. Vital Signs: 14:02 BP 114 / 43; Pulse 85; Resp 16; Temp 98.7(TE); Pulse Ox 98% on R/A; Height 5 ft. 4 in. ss (162.56 cm); Pain 0/10; 14:18 BP 113 / 63; Pulse 72; Resp 17; Pulse Ox 96% ; vg1 ED Course: 13:21 Patient arrived in ED. as 13:21 Tressa Tucker FNP-C is [facility]. kb 13:21 Damian Preston MD is Attending Physician. kb 13:52 Shanda Valenzuela RN is Primary Nurse. vg1 13:54 Arm band placed on right wrist. ss 13:55 Triage completed. ss 14:16 Initial lab(s) drawn, by me, sent to lab. Inserted saline lock: 20 gauge in left vg1 antecubital area, using aseptic technique. Blood collected. 14:18 Patient has correct armband on for positive identification. Bed in low position. Call vg1 light in reach. Side rails up X 1. 15:00 No provider procedures requiring assistance completed. IV discontinued, intact, vg1 bleeding controlled, No redness/swelling at site. Pressure dressing applied. Administered Medications: 14:12 Drug: NS 0.9% 1000 ml Route: IV; Rate: 1000 ml; Site: left antecubital; vg1 15:00 Follow up: IV Status: Completed infusion; IV Intake: 700ml vg1 14:13 Drug: Zofran (Ondansetron) 4 mg Route: IVP; Site: left antecubital; vg1 14:47 Follow up: Response: No adverse reaction vg1 Intake: 15:00 IV: 700ml; Total: 700ml. vg1 Outcome: 14:42 Discharge ordered by . kelsey 15:00 Discharged to home ambulatory. vg1 15:00 Condition: stable 15:00 Discharge instructions given to patient, Instructed on discharge instructions, follow up and referral plans. medication usage, Demonstrated understanding of instructions, follow-up care, medications, Prescriptions given X 1. 15:00 Patient left the ED. vg1 Signatures: Tressa Tucker, GABI-Ronny ASHLEY-Hien Sarkra Shelby, RN RN ss Shanda Valenzuela RN RN vg1
--- NOTE | 2021-02-10 14:43 | EDPHYS ---
Physician Documentation [facility] Name: Bailee Esparza Age: 60 yrs Sex: Female : 1960 Arrival Date: 02/10/2021 Time: 13:21 Bed 20 Private MD: ED Physician Damian Preston HPI: 02/10 13:35 This 60 yrs old Female presents to ER via Unassigned with complaints of kb Abdominal Pain, Vomiting. 13:35 The patient presents to the emergency department with nausea, vomiting. Onset: The kb symptoms/episode began/occurred 3 day(s) ago. Possible causes: unknown. The symptoms are aggravated by nothing. The symptoms are alleviated by nothing. Associated signs and symptoms: Pertinent positives: nausea, vomiting, Pertinent negatives: abdominal pain, diarrhea, fever. Severity of symptoms: At their worst the symptoms were moderate in the emergency department the symptoms are unchanged. The patient has not experienced similar symptoms in the past. The patient has not recently seen a physician. Pt reports nausea and vomiting for 3 days. Denies fever or abd pain. states she came in because her boss told her she had to have a work note to return. Historical: - Allergies: 13:25 PENICILLINS; ss 13:25 Sulfa (Sulfonamide Antibiotics); ss - PMHx: 13:25 Anxiety; Depression; ss ROS: 13:34 Constitutional: Negative for fever, chills, and weight loss. kb 13:34 Abdomen/GI: Positive for nausea and vomiting, Negative for abdominal pain, diarrhea, constipation. 13:34 All other systems are negative. Exam: 13:34 Constitutional: This is a well developed, well nourished patient who is awake, alert, kb and in no acute distress. Head/Face: Normocephalic, atraumatic. ENT: Moist Mucous membranes Cardiovascular: Regular rate and rhythm with a normal S1 and S2. No gallops, murmurs, or rubs. No pulse deficits. Respiratory: Respirations even and unlabored. No increased work of breathing, no retractions or nasal flaring. Abdomen/GI: Soft, non-tender. No distention Skin: Warm, dry with normal turgor. Normal color. MS/ Extremity: Pulses equal, no cyanosis. Neurovascular intact. Full, normal range of motion. Neuro: Awake and alert, GCS 15, oriented to person, place, time, and situation. Moves all extremities. Normal gait. Psych: Awake, alert, with orientation to person, place and time. Behavior, mood, and affect are within normal limits. Vital Signs: 14:02 BP 114 / 43; Pulse 85; Resp 16; Temp 98.7(TE); Pulse Ox 98% on R/A; Height 5 ft. 4 in. ss (162.56 cm); Pain 0/10; 14:18 BP 113 / 63; Pulse 72; Resp 17; Pulse Ox 96% ; vg1 MDM: 13:28 Patient medically screened. kb 13:34 Data reviewed: vital signs, nurses notes. Data interpreted: Pulse oximetry: on room air kb is 100 %. Interpretation: normal. 14:41 Counseling: I had a detailed discussion with the patient and/or guardian regarding: the kb historical points, exam findings, and any diagnostic results supporting the discharge/admit diagnosis, lab results, the need for outpatient follow up, a family practitioner, to return to the emergency department if symptoms worsen or persist or if there are any questions or concerns that arise at home. 02/10 13:30 Order name: Basic Metabolic Panel; Complete Time: 14:41 kb 02/10 13:30 Order name: CBC with Diff; Complete Time: 14:25 kb 02/10 13:30 Order name: Hepatic Function; Complete Time: 14:41 kb 02/10 13:30 Order name: Lipase; Complete Time: 14:41 kb 02/10 13:30 Order name: IV Saline Lock; Complete Time: 14:15 kb 02/10 13:30 Order name: Labs collected and sent; Complete Time: 14:15 kb Administered Medications: 14:12 Drug: NS 0.9% 1000 ml Route: IV; Rate: 1000 ml; Site: left antecubital; vg1 15:00 Follow up: IV Status: Completed infusion; IV Intake: 700ml vg1 14:13 Drug: Zofran (Ondansetron) 4 mg Route: IVP; Site: left antecubital; vg1 14:47 Follow up: Response: No adverse reaction vg1 Disposition Summary: 02/10/21 14:42 Discharge Ordered Location: Home kb Condition: Stable kb Diagnosis - Nausea with vomiting, unspecified kb Followup: kb - With: Emergency Department - When: As needed - Reason: Worsening of condition Followup: kb - With: Private Physician - When: 2 - 3 days - Reason: Recheck today's complaints, Continuance of care, Re-evaluation by your physician Discharge Instructions: - Discharge Summary Sheet kb - Nausea and Vomiting, Adult, [id number] kb Forms: - Medication Reconciliation Form kb - Thank You Letter kb - Antibiotic Education kb - Prescription Opioid Use kb - Work release form eb Prescriptions: - Zofran 4 mg Oral Tablet - take 1 tablet by ORAL route every 6 hours As needed; 20 tablet; Refills: 0, kb Product Selection Permitted Addendum: 02/12/2021 03:47 Co-signature as Attending Physician, Damian Preston MD I agree with the assessment and k dr plan of care. Signatures: Dispatcher [employer] EDTressa Lux, REAMER HAND-C REAMER HAND-Damian Damico MD MD kdr Smirch, Shelby, RN RN ss Shanda Valenzuela RN RN vg1
[2021-02-10 15:06] VITALS: TEMP 98.7
[2021-02-10 15:07] VITALS: BP 113/63; O2SAT 96
== END 2021-02-10 15:00 | disposition home or self-care (01) ==
LOC: ER 13:19
DX: R11.2 Nausea with vomiting, unspecified (principal); F41.9 Anxiety disorder, unspecified; Z88.0 Allergy status to penicillin; Z88.2 Allergy status to sulfonamides
CPT/HCPCS: 36415; 80048; 80076; 83690; 85025; 96361; 96374; 99284; J2405; J7030

== ENCOUNTER 2024-04-07 21:25 | Emergency (ER) | payer OTHER, SELFPAY ==
[2024-04-07] MEDS ORDERED: ALBUTEROL 2.5 MG/3 ML NEB SOL ONE (21:53)
[2024-04-07] MEDS ORDERED: IPRATROPIUM BROM 0.5MG/2.5ML ONE (21:53)
--- NOTE | 2024-04-07 22:03 | ER ---
Nurse's Notes [facility] Name: Bailee Esparza Age: 63 yrs Sex: Female : 1960 Arrival Date: 04/07/2024 Time: 21:25 Bed 16 Private MD: Diagnosis: COPD/ Chronic obstructive pulmonary disease, unspecified Presentation: 04/07 21:42 Chief complaint: Patient states: I have COPD and asthma and I have a Dr. appointment jb4 tomorrow and am out of my neb treatments at home. I just need a treatment. Coronavirus screen: At this time, the client does not indicate any symptoms associated with coronavirus-19. Ebola Screen: No symptoms or risks identified at this time. Initial Sepsis Screen: Does the patient meet any 2 criteria? No. Patient's initial sepsis screen is negative. Does the patient have a suspected source of infection? No. Patient's initial sepsis screen is negative. Risk Assessment: Do you want to hurt yourself or someone else? Patient reports no desire to harm self or others. Onset of symptoms was April 07, 2024. Transition of care: patient was not received from another setting of care. 21:42 Method Of Arrival: Ambulatory jb4 21:42 Acuity: ARMANDO 3 jb4 Historical: - Allergies: 21:47 PENICILLINS; jb4 21:47 Sulfa (Sulfonamide Antibiotics); jb4 - PMHx: 21:47 Anxiety; Depression; COPD (Depression); Asthma; jb4 - Immunization history:: Adult Immunizations up to date. - Infectious Disease History:: Denies. - Social history:: Smoking status: Patient reports the use of cigarette tobacco products, smokes one pack cigarettes per day. Screenin:57 [facility] ED Fall Risk Assessment (Adult) History of falling in the last 3 months, rg5 including since admission No falls in past 3 months (0 pts) Confusion or Disorientation No (0 pts) Intoxicated or Sedated No (0 pts) Impaired Gait No (0 pts) Mobility Assist Device Used No (0 pt) Altered Elimination No (0 pt) Score/Fall Risk Level 0 - 2 = Low Risk Oriented to surroundings, Maintained a safe environment, Hourly rounding (assess needs \T\ fall precautionary measures) done. Abuse screen: Denies threats or abuse. Nutritional screening: No deficits noted. Tuberculosis screening: No symptoms or risk factors identified. Assessment: 21:57 General: Appears in no apparent distress. Behavior is calm, cooperative, appropriate rg5 for age. Pain: Denies pain. Neuro: Level of Consciousness is awake, alert, obeys commands, Oriented to person, place, time. Cardiovascular: Denies chest pain. Respiratory: Reports shortness of breath at rest cough that is non-productive, Airway is patent Trachea midline Respiratory effort is even, unlabored, Respiratory pattern is regular, symmetrical. GI: Abdomen is round non-distended, Abd is soft and non tender. : No deficits noted. EENT: No deficits noted. Derm: Skin is intact, Skin is dry, Skin is normal, Skin temperature is warm. Musculoskeletal: Circulation, motion, and sensation intact. Range of motion: intact in all extremities. 22:28 Reassessment: Patient and/or family updated on plan of care and expected duration. Pain rg5 level reassessed. Patient is alert, oriented x 3, equal unlabored respirations, skin warm/dry/pink. Patient states feeling better. Patient states symptoms have improved. Vital Signs: 21:42 BP 139 / 71; Pulse 103; Resp 24; Temp 97.1(O); Pulse Ox 94% on R/A; Weight 69.85 kg jb4 (R); Height 5 ft. 4 in. ; 21:50 BP 139 / 71; Pulse 100; Resp 19; Pulse Ox 98% on R/A; rg5 21:42 Body Mass Index 26.43 (69.85 kg, 162.56 cm) jb4 [place] Coma Score: 21:57 Eye Response: spontaneous(4). Motor Response: obeys commands(6). Verbal Response: rg5 oriented(5). Total: 15. ED Course: 21:27 Patient arrived in ED. ra3 21:30 Tara Cuello PA-C is [facility]. sb4 21:31 Kendrick Humphries MD is Attending Physician. sb4 21:47 Herber Ba, JARRETT is Primary Nurse. rg5 21:47 Triage completed. jb4 21:47 Arm band placed on right wrist. jb4 21:57 Patient has correct armband on for positive identification. Call light in reach. Side rg5 rails up X 1. Client placed on continuous cardiac and pulse oximetry monitoring. NIBP monitoring applied. school lunch monitor on. Pulse ox on. Door closed. Noise minimized. Warm blanket given. Verbal reassurance given. 21:57 No provider procedures requiring assistance completed. Patient did not have IV access rg5 during this emergency room visit. 22:29 Provided Education on: post er care. rg5 Administered Medications: :57 Drug: DuoNeb Nebulize (3:1) (2.5 mg - 0.5 mg) 3 ml Nebulizer once Route: Nebulizer; rg5 22:04 Follow up: Response: No adverse reaction rg5 Medication: 21:57 VIS not applicable for this client. rg5 Outcome: 22:03 Discharge ordered by . sb4 22:28 Discharged to home via wheelchair, rg5 22:28 Condition: stable 22:28 Discharge instructions given to patient, Instructed on discharge instructions, follow up and referral plans. Demonstrated understanding of instructions, follow-up care, medications, Prescriptions given X 2, 22:29 Patient left the ED. rg5 Signatures: Yuriy Oliver, RN RN Tara Mays PA-C PAVelvet [email or web address] Lynette Soliz ra3 Herber Ba, RN RN rg5
--- NOTE | 2024-04-07 22:03 | EDPHYS ---
Physician Documentation [facility] Name: Bailee Esparza Age: 63 yrs Sex: Female : 1960 Arrival Date: 04/07/2024 Time: 21:25 Bed 16 Private MD: ED Physician Kendrick Humphries HPI: 04/07 23:11 This 63 yrs old Female presents to ER via Ambulatory with complaints of Asthma sb4 Exacerbation. 23:11 patient reports history of COPD, using nebulizer treatments as needed. states that she sb4 is out of her medication and is requesting a breathing treatment. she has an appointment with her doctor tomorrow. denies any shortness of breath . Historical: - Allergies: 21:47 PENICILLINS; jb4 21:47 Sulfa (Sulfonamide Antibiotics); jb4 - PMHx: 21:47 Anxiety; Depression; COPD (Depression); Asthma; jb4 - Immunization history:: Adult Immunizations up to date. - Infectious Disease History:: Denies. - Social history:: Smoking status: Patient reports the use of cigarette tobacco products, smokes one pack cigarettes per day. ROS: 23:11 Constitutional: Negative for fever, chills, and weight loss, sb4 23:11 Respiratory: Positive for wheezing, 23:11 All other systems are negative, Exam: 23:11 Constitutional: This is a well developed, well nourished patient who is awake, alert, sb4 and in no acute distress. Head/Face: Normocephalic, atraumatic. Eyes: Extra-ocular motions intact. Periorbital areas with no swelling, redness, or edema. ENT: Mucous membranes moist. Cardiovascular: Regular rate and rhythm with a normal S1 and S2. Respiratory: No increased work of breathing, no retractions or nasal flaring. Abdomen/GI: Soft, non-tender, no distension. Skin: Warm, dry with normal turgor. Normal color with no rashes, no lesions, and no evidence of cellulitis. 23:11 Respiratory: the patient does not display signs of respiratory distress, Respirations: normal, Breath sounds: decreased breath sounds, that are mild, are heard in the left posterior upper lobe and right posterior upper lobe, Vital Signs: 21:42 BP 139 / 71; Pulse 103; Resp 24; Temp 97.1(O); Pulse Ox 94% on R/A; Weight 69.85 kg jb4 (R); Height 5 ft. 4 in. ; 21:50 BP 139 / 71; Pulse 100; Resp 19; Pulse Ox 98% on R/A; rg5 21:42 Body Mass Index 26.43 (69.85 kg, 162.56 cm) jb4 Esperanza Coma Score: 21:57 Eye Response: spontaneous(4). Motor Response: obeys commands(6). Verbal Response: rg5 oriented(5). Total: 15. MDM: 21:37 Medical Screening Exam initiated sb4 23:11 Data reviewed: vital signs, nurses notes, and as a result, I will discharge patient. sb4 Counseling: I had a detailed discussion with the patient and/or guardian regarding the historical points, exam findings, and any diagnostic results supporting the discharge/admit diagnosis, the need for outpatient follow up, for definitive care, to return to the emergency department if symptoms worsen or persist or if there are any questions or concerns that arise at home, smoking cessation. Administered Medications: 21:57 Drug: DuoNeb Nebulize (3:1) (2.5 mg - 0.5 mg) 3 ml Nebulizer once Route: Nebulizer; rg5 22:04 Follow up: Response: No adverse reaction rg5 Disposition: 04/08 03:02 Co-signature as Attending Physician, Kendrick Humphries MD I agree with the assessment sp4 and plan of care. I reviewed the patient's care provided by the Advanced Practice Provider and agree with the diagnosis and treatment plan. Disposition Summary: 04/07/24 22:03 Discharge Ordered Notes: Location: Home sb4 Problem: new sb4 Symptoms: have improved sb4 Condition: Stable sb4 Diagnosis - COPD/ Chronic obstructive pulmonary disease, unspecified sb4 Followup: sb4 - With: Emergency Department - When: As needed - Reason: Trouble breathing, Worsening of condition Discharge Instructions: - Discharge Summary Sheet sb4 - Living With COPD sb4 Forms: - Patient Portal Instructions sb4 - Leadership Thank You Letter sb4 Prescriptions: - Albuterol Sulfate 2.5 mg /3 mL (0.083 %) Inhalation Solution for Nebulization - inhale 1 unit NEBULIZATION route every 8 hours As needed; 20 unit; Refills: 0, sb4 Product Selection Permitted Signatures: Yuriy Oliver RN RN jb4 Tara Cuello, NAVA PAVelvet sb4 Kendrick Humphries MD MD sp4 Herber Ba, RN RN rg5
[2024-04-07 22:39] VITALS: BP 139/71; TEMP 97.1
[2024-04-07 22:40] VITALS: O2SAT 98
== END 2024-04-07 22:29 | disposition home or self-care (01) ==
LOC: ER 21:25
DX: J44.9 Chronic obstructive pulmonary disease, unspecified (principal); F17.210 Nicotine dependence, cigarettes, uncomplicated
CPT/HCPCS: 99284; J7613; J7644